=== PATIENT | female | born 1945 | race Hispanic/Latino ===

== ENCOUNTER 2024-10-22 13:50 | Emergency (ER) | payer MEDICARE, SELFPAY ==
--- NOTE | ~2024-10-22 | CT_ITS ---
EXAMINATION: CT brain wo con DATE: 10/22/2024 14:39 INDICATION: Head injury TECHNIQUE: Computed tomography (CT) of the head was performed without intravenous contrast. Sagittal and coronal reconstructions were performed. Automated exposure control and iterative reconstruction t echnique were employed. The dose-length product was 529.67 mGy-cm. COMPARISON: None FINDINGS: No fracture. No acute intracranial hemorrhage, acute infarction or abnormal extra axial fluid collect ion. Small old lacunar infarct at the right basal ganglia. There is mild scattered white matter hypoa ttenuation consistent with chronic small vessel ischemic disease. Symmetric prominence of the sulci a nd subarachnoid spaces overlying the convexities consistent with mild age-appropriate diffuse cerebra l volume loss. Ventricles are normal and symmetric. No mass/mass effect. Changes of bilateral intraoc ular lens replacement. The orbits and mastoid air cells are normal. Mild mucosal thickening in the bi lateral ethmoid sinuses. IMPRESSION: 1. No fracture or acute intracranial process. 2. Age related changes in the brain and small old lacunar infarct at the right basal ganglia. Reviewed, dictated and finalized at location A.
--- NOTE | ~2024-10-22 | XR_ITS ---
EXAM/ PROCEDURE: XR hip RT 2V w AP pelvis - 10/22/2024 14:45 CDT HISTORY: 79 years old Female with fall, pain COMPARISON: None available TECHNIQUE: Three view(s) FINDINGS/ IMPRESSION: There are no fractures or dislocations.Joint space narrowing, subchondral sclerosis, subchondral cyst formation and osteophyte formation, compatible with mild osteoarthritis. Reviewed, dictated and finalized at location A.
[2024-10-22 13:37] VITALS: BP 162/79; PULSE 77; RESP 15; O2SAT 99
--- OUTSIDE RECORDS SUMMARY | 2024-10-22 14:19 | XMS_ITS | Clinical Summary ---
Author Organization [facility] Address 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 Active loratadine (CLARITIN) 10 mg tablet Take 10 mg by mouth daily. Active omeprazole (PriLOSEC) 20 mg Capsule, Delayed Release(E.C.)Ind ications:Esophag eal reflux Take 1 Cap by mouth daily. 04/14/2014 Active atorvastatin (LIPITOR) 40 mg tablet Take 1 Tablet (40 mg) by mouth daily with supper. 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 Encounter for pessary maintenance 03/07/2015 Osteoporosis 04/14/2014 Hyperlipidemia LDL goal <70 04/14/2014 Esophageal reflux 04/14/2014 Dermatochalasis of eyelid 08/31/2013 Resolved Problems Problem Noted Date Diagnosed Date Resolved Date Uterine prolapse 10/29/2017 12/29/2018 Chronic diastolic CHF (conge stive heart failure) 07/16/2017 08/22/2017 Cerebrovascular accident (CV A) due to thrombosis of left posterior cerebral artery 07/15/2017 08/22/2017 Overview (07/26/2020): Had weakness with standing, pain over right face and jaw and blurred vision in right eye -- lasted about ten minutes S/P Blepharitis of both eyes 10/21/2013 04/14/2014 Ptosis of both eyelids 08/31/201310/21 UTI (urinary tract infection) 10/23/2012 04/14/2014 Uterovaginal prolapse, incomplete 05/15/2011 05/03/2016 Cystocele, lateral 05/15/2011 7 Encounters Date Type Department Care Team Description 10/13/2024 External Device Data [facility] ABSTRACTION Provider, Abstract 10/13/2024 External Device Data [facility] ABSTRACTION Provider, Abstract 10/13/2024 External Device Data [facility] ABSTRACTION Provider, Abstract 10/12/2024 External Device Data [facility]STRACTION Provider, Abstract 09/15/2024 External Device Data [facility]STRACTION Provider, Abstract 09/14/2024 External Device Data [facility] ABSTRACTION Provider, Abstract 08/19/2024 External Device Data [facility] ABSTRACTION Provider, Abstract 08/17/2024 External Device Data [facility] ABSTRACTION Provider, Abstract from Last 3 Months Immunizations Immunization Administration Dates Next Due (CAPVAXIVE)(18 YRS AND UP) PNEUMOCOCCAL CONJUGATE PCV21, POLYSACCHARIDE CRM [id number] CONJUGATE, 0.5 ML (PF) IM ADJUVANT 0.5 ML (PF) IM 04/30/2024 (PREVNAR 13)(6 WKS UP) PNEUM OCOCCAL CONJUGATE (PCV13) 0.5 ML, IM 07/17/2015 (SHINGRIX)(50 YRS UP) ZOSTER VACCINE RECOMBINANT, 0.5 ML, IM 04/30/2024 (SPIKEVAX) (12 YRS UP PRIMAR Y SERIES) COVID-19 VACCINE - [id number](PF) 100 MCG/0.5 ML IM SUSP 12/23/2022 INFLUENZA VACCINE HIGH DOSE QUADRIVALENT 65 YR UP PF IM 12/23/2022,02/11/2022,01/09/2021,01/05 Influenza Seasonal Unspecifi ed Formulation IM 12/23/2022,02/04/2019,01/06/2018,04/29,11/29/2013,01/08/2013 Influenza Vaccine High Dose 65+ Yrs IM 5 PNEUMOVAX (PPSV23) pneumococ ek polysaccharide 23-valent Vaccine 03/31/2011 Family History Medical History Relation Name Comments Blindness Brother 1 Leukemia Brother 1 Healthy Daughter Cancer Father pancreatic posi tive to counselor- see media tab Pancreatic Cancer Father Cataract Mother Leukemia Mother Congenital Heart Defect Sister 1 Healthy Son Breast Cancer Neg Hx Cancer - Other Neg Hx Colon Cancer Neg Hx Detachment/Tears Neg Hx Diabetes Neg Hx Macular Degen Neg Hx Melanoma Neg Hx Ovarian Cancer Neg Hx Uterine or Endometrial Cance r, Not Including Cervical Neg Hx Relation Name Status Comments Brother 1 Alive Brother 2 Alive Brother 3 Alive Daughter Alive Father Mother Sister 1 Sister 2 Alive Son Alive Social History Tobacco Use Types Packs/Day Years Used Date Smoking Tobacco: Never Smokeless Tobacco: Never Tobacco Cessation:Counseling Given: Not Answered Alcohol Use Standard Drinks/Week Comments Yes 0 (1 standard drink = 0.6 oz pur e alcohol) Comments No Sex and Gender Information Value Date Recorded Sex Assigned at Not on file 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 Gender Identity Not on file Sexual Orientation Not on file Last Filed Vital Signs Vital Sign Reading Time Taken Comments Blood Pressure 122/80 02/03/2024 2:05 PM BARBECUE COOK Pulse 94 02/03/2024 2:05 PM BARBECUE COOK Temperature 36.7 C (98 F) 04/09/2023 2:00 PM BARBECUE COOK Respiratory Rate 18 04/09/2023 2:00 PM BARBECUE COOK Oxygen Saturation 97% 02/03/2024 2:05 PM BARBECUE COOK Inhaled Oxygen Concentration - - Weight 59 kg (130 lb) 02/03/2024 2:05 PM BARBECUE COOK Height 158.8 cm (5' 2.5) 02/03/2024 2:05 PM BARBECUE COOK Body Mass Index 23.4 02/03/2024 2:05 PM BARBECUE COOK Plan of Treatment Health Maintenance Due Date Last Done Comments DTAP/TDAP/TD VACCINES (1 - Tdap) 1964 COLORECTAL SCREENING 08/27/2018 08/27/2013, 08/27/2013, 12/27/2002 RSV VACCINE (60+ or ) (1 - 1-dose 75+ series) 2021 OSTEOPOROSIS SCREENING 12/22/2022 8, 12/22/2017, 05/05/2014, Additional history exists COVID-19 Vaccine ( - 2023-2 5 season) 2023 12/23/2022, 01/26/2021, 05/26/2020, Additional history exists ZOSTER VACCINE (2 of 2) 06/25/2024 04/30/2024 INFLUENZA VACCINE (#1) 2024 3, 12/23/2022, 02/11/2022, Additional history exists PNEUMOCOCCAL VACCINE 50+ YEARS Completed 0 04/30/2024, 07/17/2015, 03/31/2011 Medical Devices Implanted Type Area Texturing Machine Fixer Device Identifier Shelf Expiration Date Model / Serial / Lot Lens Io Tecnis 1pc 17.0 [id number] - [id number] Implanted:Qty: 1 on 07/06/2015 by Beau Morin MD Eye Right: Eye [employer] 01/29/2019 [id number] / [id number] / Lens Io Tecnis 1pc 16.0 [id number] - [id number] Implanted:Qty: 1 on 08/03/2015 by Beau Morin MD Eye Left: Eye [employer] 04/18/2019 [id number] / [id number] / Procedures Procedure Name Priority Date/Time Associated Diagnosis Comments XR DEXA BONE DENSITY AXIAL 1 OR MORE SITES Routine 12/22/2017 1:40 PM CDT Menopause from Last 3 Months or Most Recently Relevant to Health Maintenance Results * XR DEXA BONE DENSITY AXIAL 1 OR MORE SITES (12/22/2017 1:40 PM CDT) Anatomical Region Laterality Modality Other Impressions 12/22/2017 8:20 PM CDT Stable abnormal examination demonstrating osteoporotic values in the lumbar spine without important change by comparison lying below the average of the patient's age-matched control consistent with accelerated bone demineralization. NOF guidelines recommend consideration of FDA-approved medical therapies in patients with T-scores Consider remeasuring no sooner than two years only as clinically needed. Of the spine or hip equal to or less than -2.5. Narrative 12/22/2017 8:20 PM CDT DEXA Evaluation of the Lumbar Spine and Left Proximal Femur Reason for Consultation: Osteoporosis. Evaluation of bone mineral density. The following absorptiometry data were obtained. The quality of this examination is acceptable with regards to count density, processed images, data display and lack of important artifacts (including but not limited to motion and attenuation artifacts). Serial examination number two with comparison to a prior exam of 05/05/2014. L2-L3 BMD (g/cm2): 0.894 Adult T-score: -2.5 Adult Z-score: -0.9 Left Femoral Neck BMD (g/cm2): 0.727 Adult T-score: -2.2 Adult Z-score: -0.5 Left Total Hip BMD (g/cm2): 0.848 Adult T-score: -1.3 Adult Z-score: 0.2 Procedure Note Michael Granger MD - 08/17/2020 DEXA Evaluation of the Lumbar Spine and Left Proximal Femur Reason for Consultation: Osteoporosis. Evaluation of bone mineral density. The following absorptiometry data were obtained. The quality of this examination is acceptable with regards to count density, processed images, data display and lack of important artifacts (including but not limited to motion and attenuation artifacts). Serial examination number two with comparison to a prior exam of 05/05/2014. L2-L3 BMD (g/cm2): 0.894 Adult T-score: -2.5 Adult Z-score: -0.9 Left Femoral Neck BMD (g/cm2): 0.727 Adult T-score: -2.2 Adult Z-score: -0.5 Left Total Hip BMD (g/cm2): 0.848 Adult T-score: -1.3 Adult Z-score: 0.2 IMPRESSION Stable abnormal examination demonstrating osteoporotic values in the lumbar spine without important change by comparison lying below the average of the patient's age-matched control consistent with accelerated bone demineralization. NOF guidelines recommend consideration of FDA-approved medical therapies in patients with T-scores Consider remeasuring no sooner than two years only as clinically needed. Of the spine or hip equal to or less than -2.5. 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
--- NOTE | 2024-10-22 14:43 | ED.LOWEXIN ---
HPI - Extremity Injury (Lower) General Chief Complaint: Extremity Injury, Lower <Jackie Gant MD - Last Filed: 10/22/24 15:10> Stated Complaint: glf, RLE shortened <Jackie Gant MD - Last Filed: 10/22/24 15:10> Time Seen by Provider: 10/22/24 14:02 <Jackie Gant MD - Last Filed: 10/22/24 15:10> Source: patient, EMS and RN notes reviewed <Jackie Gant MD - Last Filed: 10/22/24 15:10> Mode of arrival: EMS <Jackie Gant MD - Last Filed: 10/22/24 15:10> Limitations: no limitations <Jackie Gant MD - Last Filed: 10/22/24 15:10> History of Present Illness HPI Narrative: This is 79 year old female who presents for evaluation of right hip pain s/p fall. Patient states she was rushing trying to go to bathroom and she ran into the cabinet. Shefell onto her right hip, and she also hit the back of her head. She denies LOC. Her was able to help her up. She is having pain with walking. <Jackie Gant MD - Last Filed: 10/22/24 15:10> MD complaint: hip injury <Jackie Gant MD - Last Filed: 10/22/24 15:10> Place: home <Jackie Gant MD - Last Filed: 10/22/24 15:10> Related Data Allergies/Adverse Reactions: Allergies Allergy/AdvReac Type Severity Reaction Status Date / Time No Known Allergies Allergy Verified 10/22/24 14:28 <Jackie Gant MD - Last Filed: 10/22/24 15:10> Exam Const: General: no acute distress and alert <Jackie Gant MD - Last Filed: 10/22/24 15:10> Nutritional Appearance: well nourished <Jackie Gant MD - Last Filed: 10/22/24 15:10> Orientation/consciousness: patient oriented x3 <Jackie Gant MD - Last Filed: 10/22/24 15:10> HENMT: Head: normal to inspection <Jackie Gant MD - Last Filed: 10/22/24 15:10> Eyes: EOM: EOMs intact bilaterally <Jackie Gant MD - Last Filed: 10/22/24 15:10> Resp: Effort & Inspection: normal respiratory effort <Jackie Gant MD - Last Filed: 10/22/24 15:10> Auscultation: clear to auscultation bilaterally <Jackie Gant MD - Last Filed: 10/22/24 15:10> Cardio: Rate: regular rate <Jackie Gant MD - Last Filed: 10/22/24 15:10> Rhythm: regular rhythm <Jackie Gant MD - Last Filed: 10/22/24 15:10> Heart sounds: no murmurs <Jackie Gant MD - Last Filed: 10/22/24 15:10> GI: GI Palp: Yes Soft to palpation, No Tenderness to palpation present (GI), No Guarding due to palpation present (GI) and No Rigid due to palpation <Jackie Gant MD - Last Filed: 10/22/24 15:10> Auscultation: normal bowel sounds <Jackie Gant MD - Last Filed: 10/22/24 15:10> Skin: General skin exam: normal color <Jackie Gant MD - Last Filed: 10/22/24 15:10> Rashes: no rashes <Jackie Gant MD - Last Filed: 10/22/24 15:10> Neuro: General: patient oriented x3 and CN's II-XI intact bilaterally <Jackie Gant MD - Last Filed: 10/22/24 15:10> Extrem: Other: unable to range right hip due to pain, pulses in tact <Jackie Gant MD - Last Filed: 10/22/24 15:10> Psych: Mental Status: mental status grossly normal <Jackie Gant MD - Last Filed: 10/22/24 15:10> Affect: normal affect <Jackie Gant MD - Last Filed: 10/22/24 15:10> Attitude: cooperative <Jackie Gant MD - Last Filed: 10/22/24 15:10> Course Reevaluation(s) Reevaluation #1: Care turned over to DR. Saul. Patient pending CT brain and right hip xray. <Jackie Gant MD - Last Filed: 10/22/24 15:10> Date: 10/22/24 <Jackie Gant MD - Last Filed: 10/22/24 15:10> Time: 15:09 <Jackie Gant MD - Last Filed: 10/22/24 15:10> Vital Signs Vital signs: Vital Signs Pulse Rate 77 10/22/24 13:37 Respiratory Rate 15 10/22/24 13:37 Blood Pressure 162/79 H 10/22/24 13:37 Pulse Oximetry 99 10/22/24 13:37 Oxygen Delivery Room Air 10/22/24 13:37 Pulse Rate 71 10/22/24 16:45 Respiratory Rate 14 10/22/24 16:45 Blood Pressure 136/76 10/22/24 16:45 Pulse Oximetry 95 10/22/24 16:45 Oxygen Delivery Room Air 10/22/24 13:37 <Jackie Gant MD - Last Filed: 10/22/24 15:10> Vital Signs Pulse Rate 77 10/22/24 13:37 Respiratory Rate 15 10/22/24 13:37 Blood Pressure 162/79 H 10/22/24 13:37 Pulse Oximetry 99 10/22/24 13:37 Oxygen Delivery Room Air 10/22/24 13:37 Pulse Rate 71 10/22/24 16:45 Respiratory Rate 14 10/22/24 16:45 Blood Pressure 136/76 10/22/24 16:45 Pulse Oximetry 95 10/22/24 16:45 Oxygen Delivery Room Air 10/22/24 13:37 <Kelly Saul MD - Last Filed: 10/22/24 17:10> MDM - Extremity Injury (Lower) MDM Narrative Medical decision making narrative: PATIENT WAS SIGNED OUT TO ME AT SHIFT CHANGE WAITING FOR BLOOD WORKUP, IMAGING AND LABS. BLOOD WORKUP SHOWED NO SIGNIFICANT ABNORMALITY CT HEAD WITHOUT CONTRAST SHOWED NO ACUTE ABNORMALITY X-RAY OF THE HIP AND PELVIS SHOWED NO ACUTE ABNORMALITIES. DIAGNOSIS: FALL, RIGHT HIP CONTUSION/SPRAIN. THE PT WAS DISCHARGED TO HOME.THE PT,S CONDITION UPON DISCHARGE WAS FAIR,EDUCATION WAS PROVIDED TO THE PT IN REFERENCE TO THE FINAL IMPRESSION,DISCHARGE STUDY RESULTS,TREATMENT,PROGNOSIS AND NEED FOR FOLLOW UP . <Kelly Saul MD - Last Filed: 10/22/24 17:10> Lab Data Result diagrams: 10/22/24 15:05 10/22/24 15:05 <Jackie Gant MD - Last Filed: 10/22/24 15:10> Labs: Lab Results 10/22/24 Range/Units 15:05 WBC 14.1 H (4.5-10.0) K/mm3 RBC 4.46 (4.2-5.4) M/mm3 Hgb 13.1 (12.0-15.0) g/dL Hct 40.6 (37.0-47.0) % MCV 91.0 (80-100) fl MCH 29.4 (26-34) pg MCHC 32.3 (32-36) g/dl RDW 13.0 (11.5-14.5) % Plt Count 240 (150-375) k/mm3 MPV 9.0 (7.4-10.4) fl Immature Gran % (Auto) 0.5 (0-0.5) % Neut % (Auto) 84.2 H (45.5-73.1) % Lymph % (Auto) 7.9 L (18.3-44.2) % [place] % (Auto) 6.7 (2.6-8.5) % Eos % (Auto) 0.4 (0-4.4) % Baso % (Auto) 0.3 (0.2-1.2) % Lymph # (Auto) 1.11 (0.9-3.2) K/mm3 [place] # (Auto) 1.0 H (0.1-0.6) K/mm3 Eos # (Auto) 0.1 (0-0.3) K/mm3 Baso # (Auto) 0.0 (0.0-0.1) K/mm3 Abs Immat Gran (auto) 0.07 H (0.00-0.031) K/mm3 Absolute Neuts (auto) 11.9 H (1.3-6.7) K/mm3 Absolute Nucleated RBC 0.000 (0.0-0.012) K/mm3 Nucleated RBC % 0.0 (0.0-0.2) % PT 13.5 (11.1-14.7) Seconds INR 1.0 APTT 25.2 (22.3-36.8) Seconds Sodium 135 L (137-145) mmol/L Potassium 3.6 (3.4-5.0) mmol/L Chloride 106 (98-107) mmol/L Carbon Dioxide 22 (22-30) mmol/L Anion Gap 7 (4-12) mmol/L BUN 11 (7-17) mg/dL Creatinine 0.65 L (0.7-1.0) mg/dL Estim Creat Clear Calc 48 ml/min Estimated GFR > 60 (59 - ) Glucose 101 (65-110) mg/dL Calcium 9.2 (8.4-10.2) mg/dL Total Bilirubin 0.5 (0.2-1.3) mg/dL AST 24 (14-36) U/L ALT 14 (6-35) U/L Alkaline Phosphatase 65 (38-126) U/L Total Protein 6.7 (6.3-8.2) g/dL Albumin 4.0 (3.5-5.1) g/dL <Jackie Gant MD - Last Filed: 10/22/24 15:10> Lab Results 10/22/24 Range/Units 15:05 WBC 14.1 H (4.5-10.0) K/mm3 RBC 4.46 (4.2-5.4) M/mm3 Hgb 13.1 (12.0-15.0) g/dL Hct 40.6 (37.0-47.0) % MCV 91.0 (80-100) fl MCH 29.4 (26-34) pg MCHC 32.3 (32-36) g/dl RDW 13.0 (11.5-14.5) % Plt Count 240 (150-375) k/mm3 MPV 9.0 (7.4-10.4) fl Immature Gran % (Auto) 0.5 (0-0.5) % Neut % (Auto) 84.2 H (45.5-73.1) % Lymph % (Auto) 7.9 L (18.3-44.2) % [place] % (Auto) 6.7 (2.6-8.5) % Eos % (Auto) 0.4 (0-4.4) % Baso % (Auto) 0.3 (0.2-1.2) % Lymph # (Auto) 1.11 (0.9-3.2) K/mm3 [place] # (Auto) 1.0 H (0.1-0.6) K/mm3 Eos # (Auto) 0.1 (0-0.3) K/mm3 Baso # (Auto) 0.0 (0.0-0.1) K/mm3 Abs Immat Gran (auto) 0.07 H (0.00-0.031) K/mm3 Absolute Neuts (auto) 11.9 H (1.3-6.7) K/mm3 Absolute Nucleated RBC 0.000 (0.0-0.012) K/mm3 Nucleated RBC % 0.0 (0.0-0.2) % PT 13.5 (11.1-14.7) Seconds INR 1.0 APTT 25.2 (22.3-36.8) Seconds Sodium 135 L (137-145) mmol/L Potassium 3.6 (3.4-5.0) mmol/L Chloride 106 (98-107) mmol/L Carbon Dioxide 22 (22-30) mmol/L Anion Gap 7 (4-12) mmol/L BUN 11 (7-17) mg/dL Creatinine 0.65 L (0.7-1.0) mg/dL Estim Creat Clear Calc 48 ml/min Estimated GFR > 60 (59 - ) Glucose 101 (65-110) mg/dL Calcium 9.2 (8.4-10.2) mg/dL Total Bilirubin 0.5 (0.2-1.3) mg/dL AST 24 (14-36) U/L ALT 14 (6-35) U/L Alkaline Phosphatase 65 (38-126) U/L Total Protein 6.7 (6.3-8.2) g/dL Albumin 4.0 (3.5-5.1) g/dL <Kelly Saul MD - Last Filed: 10/22/24 17:10> Imaging Data Radiologist's impression: Impressions Head CT 10/22/24 15:02 IMPRESSION: 1. No fracture or acute intracranial process. 2. Age related changes in the brain and small old lacunar infarct at the right basal ganglia. <Kelly Saul MD - Last Filed: 10/22/24 17:10> Critical Care Time Critical Care Time Critical Care Time: No <Kelly Saul MD - Last Filed: 10/22/24 17:10> Discharge Plan Discharge Clinical Impression: Fracture of femoral neck, right, closed Qualifiers: Encounter type: initial encounter Qualified Code(s): S72.001A - Fracture of unspecified part of neck of right femur, initial encounter for closed fracture <Jackie Gant MD - Last Filed: 10/22/24 15:10> Patient Disposition: Still a Patient <Jackie Gant MD - Last Filed: 10/22/24 15:10> Condition: Stable <Jackie Gant MD - Last Filed: 10/22/24 15:10> Additional Instructions: RETURN IF SYMPTOMS ARE WORSENING , CALL YOUR FAMILY PHYSICIAN FOR APPOINTMENT, TAKE TYLENOL, IBUPROFEN NEEDED FOR ACHES AND PAIN, CONTINUE HOME MEDICATIONS. <Jackie Gant MD - Last Filed: 10/22/24 15:10> Patient Language: French <Jackie Gant MD - Last Filed: 10/22/24 15:10> Follow-up/Referrals: Koffi Ken, [Primary Care Provider] - <Jackie Gant MD - Last Filed: 10/22/24 15:10>
[2024-10-22] MEDS: MORPHINE SULFATE (*CRX) 4 MG/ML INJ IV PUSH (14:56)
[2024-10-22] MEDS: ONDANSETRON INJ 4 MG/2 ML VIAL IV PUSH (14:57)
[2024-10-22 15:12] LABS: Hematocrit 40.6 % (37.0-47.0); Hemoglobin 13.1 g/dL (12.0-15.0); Immature Granulocyte Percent A 0.5 % (0-0.5); Lymphocytes Absolute Auto 1.11 K/mm3 (0.9-3.2); Mean Corpuscular HGB Conc 32.3 g/dl (32-36); Mean Corpuscular Hemoglobin 29.4 pg (26-34); Mean Corpuscular Volume 91.0 fl (80-100); Nucleated Red Blood Cells Absolute Auto 0.000 K/mm3 (0.0-0.012); Nucleated Red Blood Cells Perc 0.0 % (0.0-0.2); Platelet Count Result 240 k/mm3 (150-375); Red Blood Count 4.46 M/mm3 (4.2-5.4); White Blood Count 14.1 K/mm3 (4.5-10.0)
[2024-10-22 15:30] LABS: Alanine Aminotransferase 14 U/L (6-35); Albumin Level 4.0 g/dL (3.5-5.1); Alkaline Phosphatase 65 U/L (38-126); Anion Gap 7 mmol/L (4-12); Aspartate Amino Transferase 24 U/L (14-36); Bilirubin,Total 0.5 mg/dL (0.2-1.3); Blood Urea Nitrogen 11 mg/dL (7-17); Calcium 9.2 mg/dL (8.4-10.2); Carbon Dioxide 22 mmol/L (22-30); Chloride 106 mmol/L (98-107); Estimated CRCL calculation 48 ml/min; Estimated Glomerular Filt Rate > 60; Glucose 101 mg/dL (65-110); INR 1.0; Potassium 3.6 mmol/L (3.4-5.0); Prothrombin Time 13.5 Seconds (11.1-14.7); Sodium 135 mmol/L (137-145); Total Protein 6.7 g/dL (6.3-8.2)
[2024-10-22 15:31] LABS: Partial Thromboplastin Time 25.2 Seconds (22.3-36.8)
[2024-10-22 16:00] VITALS: BP 123/65; PULSE 69; RESP 17; O2SAT 96
[2024-10-22 16:45] VITALS: BP 136/76; PULSE 71; RESP 14; O2SAT 95
[2024-10-22 17:30] VITALS: BP 136/76; PULSE 81; RESP 18; TEMP 36.3; O2SAT 97
== END 2024-10-22 17:47 | disposition home or self-care (01) ==
PROVIDERS: General Practice; Emergency Provider Emergency Medicine; PCP Internal Medicine
DX: S72.001A Fracture of unspecified part of neck of right femur, initial encounter for closed fracture (principal); W18.09XA Striking against other object with subsequent fall, initial encounter
CPT/HCPCS: 36415; 70450; 73502; 80053; 85025; 85610; 85730; 96374; 96375; 99284; J2270; J2405

== ENCOUNTER 2024-10-27 15:41 | Outpatient (CLI) | payer MEDICARE, SELFPAY ==
--- NOTE | ~2024-10-27 | CT_ITS ---
CT OF right hip EXAMINATION: CT hip RT wo con DATE: 10/27/2024 16:06 INDICATION: Right hip pain TECHNIQUE: Computed tomography (CT) of the right hip was performed without intravenous contrast. Auto mated exposure control and iterative reconstruction technique were employed. The dose-length product was 93.52 mGy-cm. COMPARISON: X-ray pelvis and right hip 10/22/2024 FINDINGS: Atherosclerotic abdominal arterial calcifications. Mild urinary bladder wall thickening as can be see n with incomplete distention. Mild degenerative change in the pubic symphysis and right hip. Nondispl aced fracture at the distal right femoral neck. The fracture is predominantly transcervical, with ext ension of fracture lines into the lesser trochanter. No other fracture detected. IMPRESSION: Nondisplaced, predominantly transcervical right femoral neck fracture, with lesser trochanter involve ment. Results reported telephonically to Geno Story NP by Dr. Richardson at 4:19 PM on 10/27/2024. Reviewed, dictated and finalized at location K. IMPRESSION: Nondisplaced, predominantly transcervical right femoral neck fracture, with les ser trochanter involvement. Results reported telephonically to Geno Story NP by Dr. Richardson at 4:19 PM on 10/27/2024.
--- OUTSIDE RECORDS SUMMARY | 2024-10-27 15:39 | XMS_ITS | Clinical Summary ---
Author Organization [facility] Address 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 Gender Identity Not on file Sexual Orientation Not on file Last Filed Vital Signs Vital Sign Reading Time Taken Comments Blood Pressure 122/80 02/03/2024 2:05 PM REGIONAL SALES ENGINEER Pulse 94 02/03/2024 2:05 PM REGIONAL SALES ENGINEER Temperature 36.7 C (98 F) 04/09/2023 2:00 PM REGIONAL SALES ENGINEER Respiratory Rate 18 04/09/2023 2:00 PM REGIONAL SALES ENGINEER Oxygen Saturation 97% 02/03/2024 2:05 PM REGIONAL SALES ENGINEER Inhaled Oxygen Concentration - - Weight 59 kg (130 lb) 02/03/2024 2:05 PM REGIONAL SALES ENGINEER Height 158.8 cm (5' 2.5) 02/03/2024 2:05 PM REGIONAL SALES ENGINEER Body Mass Index 23.4 02/03/2024 2:05 PM REGIONAL SALES ENGINEER Plan of Treatment Health Maintenance Due Date [...] 07/17/2015, 03/31/2011 Medical Devices Implanted Type Area Certified Medication Aide Device Identifier Shelf Expiration Date Model / Serial / Lot Lens Io Tecnis 1pc 17.0 [id number] - [id number] Implanted:Qty: 1 on 07/06/2015 by Beau Morin MD Eye Right: Eye [employer] 01/29/2019 [id number] / [id number] / Lens Io Tecnis 1pc 16.0 [id number] - [id number] Implanted:Qty: 1 on 08/03/2015 by Beau Morin MD Eye Left: Eye [employer] 04/18/2019 [id number] / [id number] / Procedures Procedure Name Priority Date/Time Associated [...] hip equal to or less than -2.5. 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
[2024-10-27 17:34] LABS: Hematocrit 39.8 % (37.0-47.0); Hemoglobin 13.0 g/dL (12.0-15.0); Immature Granulocyte Percent A 0.4 % (0-0.5); Lymphocytes Absolute Auto 1.88 K/mm3 (0.9-3.2); Mean Corpuscular HGB Conc 32.7 g/dl (32-36); Mean Corpuscular Hemoglobin 29.7 pg (26-34); Mean Corpuscular Volume 91.1 fl (80-100); Nucleated Red Blood Cells Absolute Auto 0.000 K/mm3 (0.0-0.012); Nucleated Red Blood Cells Perc 0.0 % (0.0-0.2); Platelet Count Result 204 k/mm3 (150-375); Red Blood Count 4.37 M/mm3 (4.2-5.4); White Blood Count 8.5 K/mm3 (4.5-10.0)
== END 2024-10-27 15:42 | disposition home or self-care (01) ==
PROVIDERS: PCP Nurse Practitioner; Visit Provider Nurse Practitioner
DX: D72.829 Elevated white blood cell count, unspecified (principal); S72.034D Nondisplaced midcervical fracture of right femur, subsequent encounter for closed fracture with routine healing; X58.XXXD Exposure to other specified factors, subsequent encounter
CPT/HCPCS: 36415; 73700; 85025

== ENCOUNTER 2024-10-28 16:56 | Inpatient (IN) | payer MEDICARE, SELFPAY ==
--- NOTE | ~2024-10-28 | XR_ITS ---
CHEST RADIOGRAPH CLINICAL HISTORY: Preop . COMPARISON: None available TECHNIQUE: Single portable view of the chest. FINDINGS The cardiomediastinal silhouette is unremarkable. The lungs are clear. IMPRESSION: No focal infiltrate or effusion. Reviewed, dictated and finalized at location A.
--- NOTE | ~2024-10-28 | XR_ITS ---
EXAMINATION: XR surgery orthopedic DATE: 10/29/2024 20:20 CDT INDICATION: RT IT NAIL . TECHNIQUE: 2 fluoroscopic images of the right hip were obtained during right intertrochanteric nail p lacement. Fluoroscopy exposure time was 1 minute 32.9 seconds. Air Kerma 23.54 mGy. DAP 4.67 mGym2. COMPARISON: CT right hip 10/27/2024. FINDINGS/IMPRESSION: Fluoroscopic documentation of right intertrochanteric nail placement. Please refer to the operative n ote for complete procedural details. Reviewed, dictated and finalized at location K.
--- NOTE | 2024-10-28 15:16 | ADMGEN ---
This patient, Jane Thompson, was admitted to 3 [facility] Surg Room 304-01. Patient/family oriented to hospital policies and general routines including ID bracelet, bed and alarms, visiting hours, pain management, procedures, bathroom and other care routines, personal items, smoking policy, room service/diet, and visiting hours. Information on how to activate the Rapid Response Team has been discussed. Patient/Family are encouraged to report perceived risks to care and to ask questions if they do not understand what they are told or what they should do.
[2024-10-28 15:17] VITALS: BMI 22.3
[2024-10-28 16:40] VITALS: BP 145/69; PULSE 79; RESP 18; TEMP 36.9; O2SAT 98
--- NOTE | 2024-10-28 16:43 | P.HP_ITS ---
H&P: HPI History of Present Illness Date/Time: 10/28/24 16:43 Chief Complaint: Right hip pain Narrative: 79-year-old female as a direct admit from her orthopedic office for right hip pain. Patient states that she fall on 10/22/2024 and went to the emergency room for evaluation of right hip pain with x-ray negative for fracture. She was still having severe pain and unable to bear weight. Orthopedics had ordered a hip CT which showed nondisplaced, predominantly transcervical right femoral neck fracture, with lesser trochanter involvement. Patient is a direct admit from the orthopedic office. With plans for OR tomorrow for IT fracture. Labs pending. Chest x-ray with no acute process. Review of Systems Review of Systems: 12 systems were reviewed and are negativ e except for as per HPI. [facility] Social History Social History Smoking status: Never smoker Alcohol intake: current Drinks per week: 3 Substance use: current Substance use type: does not use Lack of Transportation: No Lack of Food: Never True Current Housing: I Have Housing Concerned About Future Housing: No Difficulty Paying Gas/Electric Bills: No Difficulty Paying for Meds: No Currently Unemployed: No Education: High School Diploma/GED Difficulty w/ Childcare or Family Care: No Spiritual care concerns: No Meds Home Medications and Allergies Home Medications ?Medication ?Instructions ?Recorded ?Confirmed ?Type atorvastatin 40 mg tablet (Lipitor) 40 mg PO QPM 10/27/24 10/28/24 History acetaminophen 500 mg capsule 1,000 mg PO Q6H PRN pain 10/28/24 10/28/24 History aspirin 81 mg tablet 81 mg PO QPM 10/28/24 10/28/24 History Allergies Allergy/AdvReac Type Severity Reaction Status Date / Time No Known Allergies Allergy Verified 10/27/24 13:48 Vital Signs Vital Signs - 24 hr 10/28/24 14:50 10/28/24 16:40 Temperature 98.5 F Pulse Rate 79 Respiratory Rate 18 Blood Pressure 145/69 H Pulse Oximetry 98 Oxygen Delivery Room Air Exam Narrative: General: well appearing, appears stated age. HEENT: normocephalic, atraumatic. Mucous membranes moist. EOMI, PERRLA, bilateral sclera anicteric, no conjunctival injection. Neck supple without JVD, lymphadenopathy, or bruit. Respiratory: clear to ascultation bilaterally. No rales/rhonic/wheezes. Cardiovascular: Regular rate and rhythm, normal S1-S2 upon ascultation. No murmurs, rubs, or clicks. PMI is nondisplaced, capillary refill less than 3 second. Abdomen: Soft, round, no pulsatile masses, nondistended and nontender. No rebound, no guarding. No CVA tenderness, no hepatosplenomegaly. Bowel sounds present to all four quadrants. No high pitch or tinkling sounds, resonant to percussion. Extremities: No cyanosis, clubbing, or edema present. Pulses are palpable 2/2. Right lower extremity range of motion reduced due to acute pain, extremities equal in length Neuro: Alert and orientated x 4. PERRLA. Cranial nerves 2-12 intact without focal deficit. Skin: Warm, dry, and intact, without rash, erythema, or lesion. Psych: pleasant, cooperative, normal speech, normal affect, no hallucinations, no dysarthia Assessment and Plan Assessment and plan (1) Nondisplaced fracture of neck of right femur: Code(s): S72.001A - Fracture of unspecified part of neck of right femur, initial encounter for closed fracture Status: Acute Assessment and Plan: Orthopedics consulted Plan for OR tomorrow NPO midnight Pain management Bowel protocol Chest x-ray and EKG pending (2) Fall: Qualifiers: Encounter type: subsequent encounter Qualified Code(s): W19.XXXD - Unspecified fall, subsequent encounter Code(s): W19.XXXA - Unspecified fall, initial encounter Status: Acute Assessment and Plan: Head CT from [id number] for acute process Patient will see PT OT after surgery (3) Hyperlipidemia: Qualifiers: Hyperlipidemia type: unspecified Qualified Code(s): E78.5 - Hyperlipidemia, unspecified Code(s): E78.5 - Hyperlipidemia, unspecified Status: Acute Assessment and Plan: Restart home statin Quality VTE Prophylaxis VTE prophylaxis: mechanical ordered Hospitalist MIPS Advance Care Plan I have confirmed that the patient's Advanced Care Plan is present, code status is documented, or surrogate decision maker is listed in patient medical record.: Yes Medication Reconciliation I have utilized all available resources to obtain, update and review the patients current medications (includes all prescriptions, OTC, herbals, cannabis, and nutritional supplements).: Yes
--- NOTE | 2024-10-28 17:25 | ECG_ITS ---
Test Date: 2024-10-29 09:08:23 Measurements Intervals [place] Rate: 72 P: 48 MA: 136 QRS: 13 QRSD: 85 T: 9 QT: 408 QTc: 447 Interpretive Statements SINUS RHYTHM CONSIDER RIGHT VENTRICULAR CONDUCTION DELAY BORDERLINE ST-T WAVE ABNORMALITY- ANT/INF LEADS BASELINE ARTIFACT- I, II, V1, V4-V6 BORDERLINE ECG No previous ECG available for comparison Electronically Signed On 10-29-2024 09:18:08 CDT by Tung Burgess D.O.
[2024-10-28] MEDS: ACETAMINOPHEN 325 MG TABLET 650 MG PO ×2 (17:26→23:01)
[2024-10-28] MEDS: LIDOCAINE 5% PATCH 1 PATCH TRANSDERM (17:26)
[2024-10-28] MEDS: DOCUSATE SODIUM 100 MG CAPSULE PO (17:27)
[2024-10-28] MEDS: ATORVASTATIN 40 MG TABLET PO (17:34)
--- NOTE | 2024-10-28 18:47 | PM.IMHP ---
H&P: HPI History of Present Illness Date/Time: 10/28/24 18:47 Chief Complaint: 79yo female S/P fall with non displaced intertrochanteric fracture of the RIGHT hip Review of Systems Musculoskeletal: Musculoskeletal: Reports arthralgias, Reports joint swelling and Reports stiffness Neurologic: Reports abnormal gait [facility] Social History Social History Smoking status: Never smoker Alcohol intake: current Drinks per week: 3 Substance use: current Substance use type: does not use Lack of Transportation: No Lack of Food: Never True Current Housing: I Have Housing Concerned About Future Housing: No Difficulty Paying Gas/Electric Bills: No Difficulty Paying for Meds: No Currently Unemployed: No Education: High School Diploma/GED Difficulty w/ Childcare or Family Care: No Spiritual care concerns: No Meds Home Medications and Allergies Home Medications ?Medication ?Instructions ?Recorded ?Confirmed ?Type atorvastatin 40 mg tablet (Lipitor) 40 mg PO QPM 10/27/24 10/28/24 History acetaminophen 500 mg capsule 1,000 mg PO Q6H PRN pain 10/28/24 10/28/24 History aspirin 81 mg tablet 81 mg PO QPM 10/28/24 10/28/24 History Allergies Allergy/AdvReac Type Severity Reaction Status Date / Time No Known Allergies Allergy Verified 10/27/24 13:48 Vital Signs Vital Signs - 24 hr 10/28/24 14:50 10/28/24 16:40 Temperature 98.5 F Pulse Rate 79 Respiratory Rate 18 Blood Pressure 145/69 H Pulse Oximetry 98 Oxygen Delivery Room Air Exam Narrative: Pain with motion. NVI unable to walk. Eyes: General: appearance normal, both eyes and all related structures Neck: Neck: supple Resp: Effort & Inspection: normal respiratory effort Cardio: Rate: regular rate Rhythm: regular rhythm Hip/Pelvis X-Ray 10/22/24 Assessment and Plan Assessment and plan (1) Intertrochanteric fracture of right hip: Code(s): S72.141A - Displaced intertrochanteric fracture of right femur, initial encounter for closed fracture Status: Acute Assessment and Plan: Patient has a nondisplaced intertrochanteric fracture of the Right hip. Recommend Open Reduction, Internal Fixation. Will proceed tomorrow.
[2024-10-28 22:00] VITALS: BP 152/63; PULSE 82; RESP 12; TEMP 37; O2SAT 97
[2024-10-29] VITALS (11 sets, daily range): BP systolic 138–160; BP diastolic 55–98; PULSE 68–105; RESP 14–24; TEMP 36.2–37.2; O2SAT 96–100
[2024-10-29] MEDS: ACETAMINOPHEN 325 MG TABLET 650 MG PO (05:09)
[2024-10-29 06:35] LABS: Hematocrit 36.7 % (37.0-47.0); Hemoglobin 12.0 g/dL (12.0-15.0); Immature Granulocyte Percent A 0.3 % (0-0.5); Lymphocytes Absolute Auto 2.05 K/mm3 (0.9-3.2); Mean Corpuscular HGB Conc 32.7 g/dl (32-36); Mean Corpuscular Hemoglobin 29.6 pg (26-34); Mean Corpuscular Volume 90.4 fl (80-100); Nucleated Red Blood Cells Absolute Auto 0.000 K/mm3 (0.0-0.012); Nucleated Red Blood Cells Perc 0.0 % (0.0-0.2); Platelet Count Result 185 k/mm3 (150-375); Red Blood Count 4.06 M/mm3 (4.2-5.4); White Blood Count 5.9 K/mm3 (4.5-10.0)
[2024-10-29 07:01] LABS: Anion Gap 4 mmol/L (4-12); Blood Urea Nitrogen 10 mg/dL (7-17); Calcium 8.8 mg/dL (8.4-10.2); Carbon Dioxide 26 mmol/L (22-30); Chloride 107 mmol/L (98-107); Estimated CRCL calculation 50 ml/min; Estimated Glomerular Filt Rate > 60; Glucose 99 mg/dL (65-110); Potassium 3.5 mmol/L (3.4-5.0); Sodium 137 mmol/L (137-145)
--- NOTE | 2024-10-29 09:55 | PM.IMPN ---
Progress Note: A&P Assessment and Plan (1) Nondisplaced fracture of neck of right femur: Code(s): S72.001A - Fracture of unspecified part of neck of right femur, initial encounter for closed fracture Status: Acute (2) Intertrochanteric fracture of right hip: Code(s): S72.141A - Displaced intertrochanteric fracture of right femur, initial encounter for closed fracture Status: Acute Plan fall Nondisplaced fracture of neck of right femur: Code(s): S72.001A - Fracture of unspecified part of neck of right femur, initial encounter for closed fracture Status: Acute Assessment and Plan: Orthopedics consulted Pain management Bowel protocol Chest x-ray and EKG pending Open Reduction, Internal Fixation today Hyperlipidemia: Qualifiers: Hyperlipidemia type: unspecified Qualified Code(s): E78.5 - Hyperlipidemia, unspecified Code(s): E78.5 - Hyperlipidemia, unspecified Status: Acute Assessment and Plan: Restart home statin Subjective Date/time seen: 10/29/24 09:55 Interval history: Patient is afebrile, hemodynamically stable, Labs reviewed, unremarkable Focal weakness, right hip pain is tolerable with narcotic medications Denies chest pain abdomen pain nausea vomiting diarrhea Exam Narrative: GENERAL: Pleasant, in no acute distress. Well-nourished. - EYES: EOMI. Anicteric. - HENT: Moist mucous membranes. - LUNGS: Clear to auscultation bilaterally, no wheezing, rhonchi, or rales. - CARDIOVASCULAR: Regular rate and rhythm. No murmur. No JVD. - ABDOMEN: Soft, non-tender and non-distended. No palpable masses. - EXTREMITIES: No edema. Peripheral pulses 2+. Non-tender. Right hip movement is restricted because of pain - NEUROLOGIC: No focal neurological deficits. CN II-XII grossly intact. - PSYCHIATRIC: Awake, Alert and oriented x 3. Appropriate mood and affect. - SKIN: No rashes or lesions. Warm. - LYMPH: No cervical lymphadenopathy. Objective Data Vital Signs Vital Signs: Vital Signs - 24 hr 10/28/24 14:50 10/28/24 16:40 10/28/24 20:00 Temperature 98.5 F Pulse Rate 79 Respiratory Rate 18 Blood Pressure 145/69 H Pulse Oximetry 98 Oxygen Delivery Room Air Room Air 10/28/24 22:00 10/29/24 06:00 Temperature 98.6 F 97.3 F L Pulse Rate 82 69 Respiratory Rate 12 20 Blood Pressure 152/63 H 145/88 H Pulse Oximetry 97 96 Oxygen Delivery Intake/Output Intake/Output: Intake & Output 10/26/24 10/27/24 10/28/24 10/29/24 23:59 23:59 23:59 23:59 Intake Total 790 350 Output Total 800 Balance 790 -450 Meds/Results Medications: Active Medications Generic Name Dose Route Start Last Admin Trade Name Freq PRN Reason Stop Dose Admin Acetaminophen 650 mg 10/28/24 16:50 10/29/24 05:09 Acetaminophen 325 Mg Tablet PO 650 mg Q6HR EDWIN Administration Aspirin 81 mg 10/28/24 18:00 10/28/24 20:12 Aspirin 81 Mg Chewable Tablet PO Not Given QPM EDWIN Atorvastatin Calcium 40 mg 10/28/24 18:00 10/28/24 17:34 Atorvastatin 40 Mg Tablet PO 40 mg QPM EDWIN Administration Docusate Sodium 100 mg 10/28/24 17:00 10/28/24 17:27 Docusate Sodium 100 Mg Capsule PO 100 mg BID EDWIN Administration Lidocaine 1 patch 10/28/24 16:50 10/28/24 17:26 Lidocaine 5% Patch TRANSDERM 1 patch DAILY EDWIN Administration Methocarbamol 500 mg 10/28/24 21:00 10/28/24 19:58 Methocarbamol 500 Mg Tablet PO 500 mg QID EDWIN Administration Morphine Sulfate 2 mg 10/28/24 16:19 Morphine Sulfate (*Crx) 2 Mg/Ml Inj IV PUSH Q2H PRN Pain Rated 7-10 Oxycodone HCl 5 mg 10/28/24 16:47 Oxycodone Hcl (*Crx) 5 Mg Tab Ir PO Q4H PRN Pain Rated 4-5 Radiology Results: ITS Impressions Chest X-Ray 10/28/24 17:49 IMPRESSION: No focal infiltrate or effusion. Labs Labs: Laboratory Results - last 24 hr 10/29/24 05:47 WBC 5.9 RBC 4.06 L Hgb 12.0 Hct 36.7 L MCV 90.4 MCH 29.6 MCHC 32.7 RDW 12.6 Plt Count 185 MPV 9.6 Immature Gran % (Auto) 0.3 Neut % (Auto) 49.7 Lymph % (Auto) 34.6 [place] % (Auto) 10.8 H Eos % (Auto) 3.9 Baso % (Auto) 0.7 Lymph # (Auto) 2.05 [place] # (Auto) 0.6 Eos # (Auto) 0.2 Baso # (Auto) 0.0 Abs Immat Gran (auto) 0.02 Absolute Neuts (auto) 3.0 Absolute Nucleated RBC 0.000 Nucleated RBC % 0.0 Sodium 137 Potassium 3.5 Chloride 107 Carbon Dioxide 26 Anion Gap 4 BUN 10 Creatinine 0.62 L Estim Creat Clear Calc 50 Estimated GFR > 60 Glucose 99 Calcium 8.8
[2024-10-29] MEDS: KETOROLAC 15 MG/ML VIAL (*BKC) IV PUSH (16:04)
[2024-10-29] MEDS: ACETAMINOPHEN 500 MG TABLET 1000 MG PO (16:04)
[2024-10-29] MEDS: TRANEXAMIC ACID 1,000MG/ISO100 1,000 MG/100 ML BAG 200 MG IVPB (16:05)
[2024-10-29] MEDS: LACTATED RINGERS 1,000 ML 30 ML IV CONT ×2 (16:07→21:28)
--- NOTE | 2024-10-29 19:41 | P.PNAN_ITS ---
Anes - Initial Pre Proc Eval Procedure: Operation Date: 10/29/24 16:30 Proposed Procedures p Right Intertrochanteric Nail - Simón Hameed MD Date/Time: 10/29/24 19:41 Surgeon: Valeria Pink MD Pre Op Diagnosis: Intertrochanteric Fracture Patient Data Age: 79 Gender: F Height: 1.57 m Weight: 55.3 kg Last Vital Signs Temp 37.2 C 10/29/24 15:55 Pulse 88 10/29/24 15:55 Resp 16 10/29/24 15:55 BP 160/77 H 10/29/24 15:55 Pulse Ox 100 10/29/24 15:55 O2 Del Method Room Air 10/29/24 15:55 Allergies Allergy/AdvReac Type Severity Reaction Status Date / Time No Known Allergies Allergy Verified 10/29/24 15:53 Home Medications ?Medication ?Instructions ?Recorded ?Confirmed ?Type atorvastatin 40 mg tablet (Lipitor) 40 mg PO QPM 10/27/24 10/28/24 History acetaminophen 500 mg capsule 1,000 mg PO Q6H PRN pain 10/28/24 10/28/24 History aspirin 81 mg tablet 81 mg PO QPM 10/28/24 10/28/24 History Laboratory Tests 10/29/24 10/29/24 05:47 13:29 WBC 5.9 K/mm3 (4.5-10.0) RBC 4.06 L M/mm3 (4.2-5.4) Hgb 12.0 g/dL (12.0-15.0) Hct 36.7 L % (37.0-47.0) MCV 90.4 fl (80-100) MCH 29.6 pg (26-34) MCHC 32.7 g/dl (32-36) RDW 12.6 % (11.5-14.5) Plt Count 185 k/mm3 (150-375) MPV 9.6 fl (7.4-10.4) Immature Gran % (Auto) 0.3 % (0-0.5) Neut % (Auto) 49.7 % (45.5-73.1) Lymph % (Auto) 34.6 % (18.3-44.2) [place] % (Auto) 10.8 H % (2.6-8.5) Eos % (Auto) 3.9 % (0-4.4) Baso % (Auto) 0.7 % (0.2-1.2) Lymph # (Auto) 2.05 K/mm3 (0.9-3.2) [place] # (Auto) 0.6 K/mm3 (0.1-0.6) Eos # (Auto) 0.2 K/mm3 (0-0.3) Baso # (Auto) 0.0 K/mm3 (0.0-0.1) Abs Immat Gran (auto) 0.02 K/mm3 (0.00-0.031) Absolute Neuts (auto) 3.0 K/mm3 (1.3-6.7) Absolute Nucleated RBC 0.000 K/mm3 (0.0-0.012) Nucleated RBC % 0.0 % (0.0-0.2) Sodium 137 mmol/L (137-145) Potassium 3.5 mmol/L (3.4-5.0) Chloride 107 mmol/L (98-107) Carbon Dioxide 26 mmol/L (22-30) Anion Gap 4 mmol/L (4-12) BUN 10 mg/dL (7-17) Creatinine 0.62 L mg/dL (0.7-1.0) Estim Creat Clear Calc 50 ml/min Estimated GFR > 60 (59 - ) Glucose 99 mg/dL (65-110) Calcium 8.8 mg/dL (8.4-10.2) Blood Type A Positive Antibody Screen Negative Patient hx anesthesia problems: none Family hx anesthesia problems: none Results Review: All pre-operative results and documents have been reviewed as part of the pre- operative evaluation. [facility] Past Medical History Medical History (Updated 10/29/24 @ 19:46 by Juan Antonio Gould DO) TIA (transient ischemic attack) Hyperlipidemia Social History Social History (Updated 10/29/24 @ 19:47 by Juan Antonio Gould DO) Smoking status: Never smoker Alcohol intake: current Drinks per week: 3 Substance use: current Substance use type: does not use Other substance usage details: THC gummies occ for sleep Lack of Transportation: No Lack of Food: Never True Current Housing: I Have Housing Concerned About Future Housing: No Difficulty Paying Gas/Electric Bills: No Difficulty Paying for Meds: No Currently Unemployed: No Education: High School Diploma/GED Difficulty w/ Childcare or Family Care: No Spiritual care concerns: No Anes - Eval Final PreProcedure Day of Procedure 10/29/24 19:41 Patient weight: normal Heart: regular rate and rhythm Lungs: clear to auscultation Airway: Mallampati scale class II Neurological: alert and oriented Last oral intake: >/= 8 hours ASA classification: III Emergent: no Anesthetic plan: proceed Anesthesia type and monitoring: general LMA and standard monitoring Results Review: All pre-operative results and documents have been reviewed as part of the pre- operative evaluation. Informed Consent: The patient's anesthetic plan and its attendant risks and benefits were discussed with the patient/family/POA. Questions were solicited and answers provided to the satisfaction of the patient/family/POA.
--- NOTE | 2024-10-29 20:05 | WPDHPUPDATE1 ---
History and Physical Update Update Date/Time: 10/29/24 20:05 History and Physical has been reviewed, including an updated exam of the patient. There are NO changes in the patient's condition. Risks, benefits, and alternatives have been discussed and questions answered. Patient agrees to proceed with procedure.
[2024-10-29] MEDS: ceFAZolin 2 GM in SODIUM CHLORIDE 0.9% IV 50 ML 100 ML IVPB (20:08)
--- NOTE | 2024-10-29 21:04 | W.PM.PROC2 ---
Procedure Note - Detailed Date of Procedure 10/29/24 Pre-op Diagnosis RIGHT Intertrochanteric Hip Fracture Post-op Diagnosis Same Procedure Performed Open reduction internal fixation with an intertrochanteric nail Surgeon Simón Hameed MD Anesthesia General Indications Fractured hip Description of Procedure Patient brought to operating room #7. A general anesthetic was administered. She was sterilely prepped and draped after the fracture was aligned on the fracture table. Longitudinal incision made over the tip of the trochanter. The tip was broach with an awl and one-step Reamer used. I tried to put a 9 x 125 nail down, but I had to sequentially ream to 11. I then passed the nail. An 85 millimeter screw was placed in the center of the head. X-rays in the AP and lateral plane demonstrate anatomic alignment of the hip. Wounds irrigated hemostasis obtained closed 2. Vicryl 2-0 Vicryl and jose guadalupe. Sterile dressing applied. Patient left the operative satisfactory condition. Implants [employer] trochanteric nail Estimated Blood Loss 100 Urine Output 800 Drains No Packing No Pathology None sent Complications No immediate complications Condition Stable Disposition PACU [facility] Billing Surgery - Charge Forward: Surgery Billing ([id number] Troch Nail)
[2024-10-29] MEDS: fentaNYL CITRATE INJ (*CRX) 100 MCG/2 ML VIAL 25 MCG IV PUSH ×4 (21:42→21:53)
[2024-10-29] MEDS: HYDROcodone/acetaminophen (*CRX) 7.5-325 MG TABLET 1 TAB PO (22:43)
[2024-10-30] VITALS (8 sets, daily range): BP systolic 101–143; BP diastolic 46–73; PULSE 64–83; RESP 12–18; TEMP 36.2–36.9; O2SAT 92–99
[2024-10-30] MEDS: ceFAZolin 2 GM in SODIUM CHLORIDE 0.9% IV 50 ML 100 ML IVPB ×3 (03:03→19:45)
[2024-10-30] MEDS: HYDROcodone/acetaminophen (*CRX) 7.5-325 MG TABLET 1 TAB PO ×2 (03:04→23:01)
[2024-10-30] MEDS: ACETAMINOPHEN 325 MG TABLET 650 MG PO ×4 (06:00→23:46)
[2024-10-30 06:15] LABS: Hematocrit 30.8 % (37.0-47.0); Hemoglobin 10.0 g/dL (12.0-15.0); Immature Granulocyte Percent A 0.8 % (0-0.5); Lymphocytes Absolute Auto 1.39 K/mm3 (0.9-3.2); Mean Corpuscular HGB Conc 32.5 g/dl (32-36); Mean Corpuscular Hemoglobin 29.9 pg (26-34); Mean Corpuscular Volume 92.2 fl (80-100); Nucleated Red Blood Cells Absolute Auto 0.000 K/mm3 (0.0-0.012); Nucleated Red Blood Cells Perc 0.0 % (0.0-0.2); Platelet Count Result 169 k/mm3 (150-375); Red Blood Count 3.34 M/mm3 (4.2-5.4); White Blood Count 11.7 K/mm3 (4.5-10.0)
[2024-10-30] MEDS: ONDANSETRON INJ 4 MG/2 ML VIAL IV PUSH (06:19)
[2024-10-30 06:58] LABS: Anion Gap 7 mmol/L (4-12); Blood Urea Nitrogen 13 mg/dL (7-17); Calcium 8.4 mg/dL (8.4-10.2); Carbon Dioxide 21 mmol/L (22-30); Chloride 102 mmol/L (98-107); Estimated CRCL calculation 51 ml/min; Estimated Glomerular Filt Rate > 60; Glucose 89 mg/dL (65-110); Potassium 4.0 mmol/L (3.4-5.0); Sodium 130 mmol/L (137-145)
--- NOTE | 2024-10-30 07:49 | PM.PNORT ---
Progress Note: A&P Assessment and Plan (1) Intertrochanteric fracture of right hip: Code(s): S72.141A - Displaced intertrochanteric fracture of right femur, initial encounter for closed fracture Status: Acute Assessment and Plan: S/P ORIF for RIGHT Intertrochanteric Fracture. Doing well. Mobilize today. May bear meaghan as tolerated. Subjective Subjective Date/Time Seen: 10/30/24 07:49 Principal diagnosis: Right Intertrochanteric Fracture Review of Systems Musculoskeletal: Musculoskeletal: Reports arthralgias, Reports joint swelling and Reports stiffness Neurologic: Reports abnormal gait Exam Narrative: Dressing intact wiggles toes Objective Data Vital Signs Vital Signs: Vital Signs - 24 hr 10/29/24 08:00 10/29/24 10:15 10/29/24 10:30 Temperature 97.9 F 97.8 F Pulse Rate 82 85 Respiratory Rate 18 18 Blood Pressure 138/58 L 155/76 H Pulse Oximetry 98 98 Oxygen Delivery Room Air Oxygen Flow Rate 10/29/24 11:00 10/29/24 12:00 10/29/24 14:00 Temperature 98.0 F 97.5 F L 98.8 F Pulse Rate 79 68 77 Respiratory Rate 18 18 18 Blood Pressure 149/68 H 143/55 H 154/78 H Pulse Oximetry 100 100 97 Oxygen Delivery Oxygen Flow Rate 10/29/24 15:55 10/29/24 21:28 10/29/24 21:40 Temperature 98.9 F 97.7 F Pulse Rate 88 105 H 88 Respiratory Rate 16 24 H 17 Blood Pressure 160/77 H 149/98 H 140/60 Pulse Oximetry 100 99 100 Oxygen Delivery Room Air Simple Face Mask Simple Face Mask Oxygen Flow Rate 8 8 10/29/24 21:45 10/29/24 21:55 10/29/24 22:10 Temperature 97.2 F L 97.7 F Pulse Rate 90 80 Respiratory Rate 16 14 Blood Pressure 152/76 H 139/69 Pulse Oximetry 98 97 Oxygen Delivery Nasal Cannula Nasal Cannula Nasal Cannula Oxygen Flow Rate 2 2 2 10/30/24 03:58 Temperature 98.2 F Pulse Rate 71 Respiratory Rate 18 Blood Pressure 124/49 L Pulse Oximetry 99 Oxygen Delivery Oxygen Flow Rate Intake/Output Intake/Output: Intake & Output 07/30/25 07/31/25 08/01/25 08/02/25 23:59 23:59 23:59 23:59 Intake Total 817 326 0275 Output Total 2400 450 Balance 790 -6650 2850 Meds/Results Medications: Active Medications Generic Name Dose Route Start Last Admin Trade Name Freq PRN Reason Stop Dose Admin Acetaminophen 650 mg 10/28/24 16:50 10/30/24 06:00 Acetaminophen 325 Mg Tablet PO 650 mg Q6HR EDWIN Administration Acetaminophen 500 mg 10/29/24 22:13 Acetaminophen 500 Mg Tablet PO Q6H PRN Pain Rated 1-3 Hydrocodone Bitart/Acetaminophen 1 tab 10/29/24 22:13 Hydrocodone/Acetaminophen (*Crx) 5-325 Mg Tablet PO Q4H PRN Pain Rated 4-6 Hydrocodone Bitart/Acetaminophen 1 tab 10/29/24 22:13 10/30/24 03:04 Hydrocodone/Acetaminophen (*Crx) 7.5-325 Mg Tablet PO 1 tab Q4H PRN Administration Pain Rated 7-10 Aspirin 81 mg 10/28/24 18:00 10/29/24 18:08 Aspirin 81 Mg Chewable Tablet PO Not Given QPM EDWIN Atorvastatin Calcium 40 mg 10/28/24 18:00 10/29/24 18:08 Atorvastatin 40 Mg Tablet PO Not Given QPM EDWIN Hydromorphone HCl 1 mg 10/29/24 22:20 Hydromorphone Hcl Inj (*Crx) 2 Mg/Ml Vial IV PUSH Q2H PRN Breakthrough Pain Rated 7-10 or NPO Hydromorphone HCl 0.5 mg 10/29/24 22:20 Hydromorphone Hcl Inj (*Crx) 2 Mg/Ml Vial IV PUSH Q2H PRN Breakthrough Pain Rated 4-6 or NPO Hydroxyzine Pamoate 50 mg 10/29/24 22:13 Hydroxyzine Pamoate 25 Mg Capsule PO Q4H PRN Itching Lactated Ringer's 1,000 mls @ 30 mls/hr 10/29/24 19:50 10/29/24 22:04 Lr - Lactated Ringers Iv IV CONT Infused .Q24H EDWIN Infusion Cefazolin Sodium 2 gm/ Sodium 50 mls @ 100 mls/hr 10/30/24 04:00 10/30/24 03:03 Chloride IVPB 10/30/24 20:29 100 mls/hr Q8H EDWIN Administration Ibuprofen 800 mg in 200 mls @ 400 mls/hr 10/29/24 22:13 Caldolor 800 Mg/200 Ml IVPB Q6H PRN Breakthrough Pain Rated 1-3 or NPO Lidocaine 1 patch 10/28/24 16:50 10/29/24 12:02 Lidocaine 5% Patch TRANSDERM Not Given DAILY EDWIN Methocarbamol 500 mg 10/28/24 21:00 10/29/24 22:43 Methocarbamol 500 Mg Tablet PO 500 mg QID EDWIN Administration Naloxone HCl 0.1 mg 10/29/24 22:13 Naloxone Hcl 0.4 Mg/Ml Vial IV PUSH Q2M PRN Opiate Reversal Ondansetron HCl 4 mg 10/29/24 22:13 10/30/24 06:19 Ondansetron Inj 4 Mg/2 Ml Vial IV PUSH 4 mg Q4H PRN Administration Nausea And Vomiting Polyethylene Glycol 17 gm 10/30/24 09:00 Polyethylene Glycol 3350 17 Gm Powd.Pack PO QAM [facility] Rivaroxaban 10 mg 10/30/24 17:00 Rivaroxaban 10 Mg Tablet PO DAILY@17 [facility] Senna/Docusate Sodium 2 tab 10/30/24 09:00 Senna/Docusate Sodium Tablet PO BID [facility] Tramadol HCl 50 mg 10/29/24 22:13 Tramadol Hcl (*Crx) 50 Mg Tablet PO Q4H PRN Pain Rated 1-3 Radiology Results: ITS Impressions Chest X-Ray 10/28/24 17:49 IMPRESSION: No focal infiltrate or effusion. Labs Labs: Laboratory Results - last 24 hr 10/29/24 10/30/24 13:29 05:40 WBC 11.7 H RBC 3.34 L Hgb 10.0 L Hct 30.8 L MCV 92.2 MCH 29.9 MCHC 32.5 RDW 12.4 Plt Count 169 MPV 9.3 Immature Gran % (Auto) 0.8 H Neut % (Auto) 80.5 H Lymph % (Auto) 11.9 L [place] % (Auto) 6.3 Eos % (Auto) 0.2 Baso % (Auto) 0.3 Lymph # (Auto) 1.39 [place] # (Auto) 0.7 H Eos # (Auto) 0.0 Baso # (Auto) 0.0 Abs Immat Gran (auto) 0.09 H Absolute Neuts (auto) 9.4 H Absolute Nucleated RBC 0.000 Nucleated RBC % 0.0 Sodium 130 L Potassium 4.0 Chloride 102 Carbon Dioxide 21 L Anion Gap 7 BUN 13 Creatinine 0.61 L Estim Creat Clear Calc 51 Estimated GFR > 60 Glucose 89 Calcium 8.4 Blood Type A Positive Antibody Screen Negative
[2024-10-30] MEDS: SENNA/DOCUSATE SODIUM TABLET 2 TAB PO ×2 (08:40→17:16)
--- NOTE | 2024-10-30 13:14 | P.PNAN_ITS ---
Anes - Prog Note Post-Op Date/Time: 10/30/24 13:14 Cardiovascular status: normal Respiratory status: normal Airway patency: baseline Mental status: baseline Post-Op hydration status: normal Vital Signs: Last Vital Signs Temp 98 F 10/30/24 07:58 Pulse 78 10/30/24 08:38 Resp 16 10/30/24 07:58 BP 108/53 L 10/30/24 08:38 Pulse Ox 97 10/30/24 07:58 O2 Del Method Room Air 10/30/24 08:25 O2 Flow Rate 2 10/29/24 22:10 Pain Score (VAS): 7 I/O: Intake & Output 10/29/24 10/30/24 10/30/24 23:59 07:59 15:59 Intake Total 200 3350 410 Output Total 1600 450 Balance -1400 2900 410 Laboratory Tests 10/30/24 05:40 10/30/24 05:40 10/29/24 10/30/24 13:29 05:40 WBC 11.7 H RBC 3.34 L Hgb 10.0 L Hct 30.8 L MCV 92.2 MCH 29.9 MCHC 32.5 RDW 12.4 Plt Count 169 MPV 9.3 Immature Gran % (Auto) 0.8 H Neut % (Auto) 80.5 H Lymph % (Auto) 11.9 L [place] % (Auto) 6.3 Eos % (Auto) 0.2 Baso % (Auto) 0.3 Lymph # (Auto) 1.39 [place] # (Auto) 0.7 H Eos # (Auto) 0.0 Baso # (Auto) 0.0 Abs Immat Gran (auto) 0.09 H Absolute Neuts (auto) 9.4 H Absolute Nucleated RBC 0.000 Nucleated RBC % 0.0 Sodium 130 L Potassium 4.0 Chloride 102 Carbon Dioxide 21 L Anion Gap 7 BUN 13 Creatinine 0.61 L Estim Creat Clear Calc 51 Estimated GFR > 60 Glucose 89 Calcium 8.4 Blood Type A Positive Antibody Screen Negative Post-procedural complaints: nausea Patient Feedback: Patient satisfied with anesthetic care.
--- NOTE | 2024-10-30 14:34 | PM.IMPN ---
Progress Note: A&P Assessment and Plan (1) Nondisplaced fracture of neck of right femur: Code(s): S72.001A - Fracture of unspecified part of neck of right femur, initial encounter for closed fracture Status: Acute (2) Intertrochanteric fracture of right hip: Code(s): S72.141A - Displaced intertrochanteric fracture of right femur, initial encounter for closed fracture Status: Acute Plan fall Nondisplaced fracture of neck of right femur: Code(s): S72.001A - Fracture of unspecified part of neck of right femur, initial encounter for closed fracture Status: Acute Assessment and Plan: Orthopedics consulted Pain management Open Reduction, Internal Fixation D1 No complication Continue PT OT Optimize pain management No focal deficit Hyperlipidemia: Qualifiers: Hyperlipidemia type: unspecified Qualified Code(s): E78.5 - Hyperlipidemia, unspecified Code(s): E78.5 - Hyperlipidemia, unspecified Status: Acute Assessment and Plan: Restart home statin Anemia Postop anemia No need transfusion Follow-up CBC mild hyponatremia Sodium 130 Start sodium chloride 1 g b.i.d. p.o. Subjective Date/time seen: 10/30/24 14:34 Interval history: Postop day 1, and patient has no headache, vision changes, chest pain, shortness breast, abdomen pain, nausea vomiting diarrhea. Right hip pain is still moderate to severe with movement Patient is afebrile, blood pressure stable on the lower side Labs reviewed, leukocytosis 11,700 hemoglobin 10.0 Sodium 130 Exam Narrative: GENERAL: Pleasant, in no acute distress. Well-nourished. - EYES: EOMI. Anicteric. - HENT: Moist mucous membranes. - LUNGS: Clear to auscultation bilaterally, no wheezing, rhonchi, or rales. - CARDIOVASCULAR: Regular rate and rhythm. No murmur. No JVD. - ABDOMEN: Soft, non-tender and non-distended. No palpable masses. - EXTREMITIES: No edema. Peripheral pulses 2+. Non-tender. Right hip tenderness to palpation, surgical wound dry and clean - NEUROLOGIC: No focal neurological deficits. CN II-XII grossly intact. - PSYCHIATRIC: Awake, Alert and oriented x 3. Appropriate mood and affect. - SKIN: No rashes or lesions. Warm. - LYMPH: No cervical lymphadenopathy. Objective Data Vital Signs Vital Signs: Vital Signs - 24 hr 08/01/25 15:55 10/29/24 21:28 10/29/24 21:40 Temperature 98.9 F 97.7 F Pulse Rate 88 105 H 88 Respiratory Rate 16 24 H 17 Blood Pressure 160/77 H 149/98 H 140/60 Pulse Oximetry 100 99 100 Oxygen Delivery Room Air Simple Face Mask Simple Face Mask Oxygen Flow Rate 8 8 10/29/24 21:45 10/29/24 21:55 10/29/24 22:10 Temperature 97.2 F L 97.7 F Pulse Rate 90 80 Respiratory Rate 16 14 Blood Pressure 152/76 H 139/69 Pulse Oximetry 98 97 Oxygen Delivery Nasal Cannula Nasal Cannula Nasal Cannula Oxygen Flow Rate 2 2 2 10/30/24 03:58 10/30/24 07:51 10/30/24 07:58 Temperature 98.2 F 98 F Pulse Rate 71 64 Respiratory Rate 18 16 Blood Pressure 124/49 L 116/60 Pulse Oximetry 99 95 97 Oxygen Delivery Room Air Oxygen Flow Rate 10/30/24 08:00 10/30/24 08:13 10/30/24 08:25 Temperature Pulse Rate Respiratory Rate Blood Pressure Pulse Oximetry Oxygen Delivery Room Air Room Air Room Air Oxygen Flow Rate 10/30/24 08:38 10/30/24 11:58 Temperature 98.3 F Pulse Rate 78 67 Respiratory Rate 18 Blood Pressure 108/53 L 101/46 L Pulse Oximetry 98 Oxygen Delivery Oxygen Flow Rate Intake/Output Intake/Output: Intake & Output 10/27/24 10/28/24 10/29/24 10/30/24 23:59 23:59 23:59 23:59 Intake Total 878 906 0112 Output Total 2400 450 Balance 790 -1610 3430 Meds/Results Medications: Active Medications Generic Name Dose Route Start Last Admin Trade Name Freq PRN Reason Stop Dose Admin Acetaminophen 650 mg 10/28/24 16:50 10/30/24 11:59 Acetaminophen 325 Mg Tablet PO 650 mg Q6HR EDWIN Administration Acetaminophen 500 mg 10/29/24 22:13 Acetaminophen 500 Mg Tablet PO Q6H PRN Pain Rated 1-3 Hydrocodone Bitart/Acetaminophen 1 tab 10/29/24 22:13 Hydrocodone/Acetaminophen (*Crx) 5-325 Mg Tablet PO Q4H PRN Pain Rated 4-6 Hydrocodone Bitart/Acetaminophen 1 tab 10/29/24 22:13 10/30/24 03:04 Hydrocodone/Acetaminophen (*Crx) 7.5-325 Mg Tablet PO 1 tab Q4H PRN Administration Pain Rated 7-10 Aspirin 81 mg 10/28/24 18:00 10/29/24 18:08 Aspirin 81 Mg Chewable Tablet PO Not Given QPM EDWIN Atorvastatin Calcium 40 mg 10/28/24 18:00 10/29/24 18:08 Atorvastatin 40 Mg Tablet PO Not Given QPM EDWIN Hydromorphone HCl 1 mg 10/29/24 22:20 Hydromorphone Hcl Inj (*Crx) 2 Mg/Ml Vial IV PUSH Q2H PRN Breakthrough Pain Rated 7-10 or NPO Hydromorphone HCl 0.5 mg 10/29/24 22:20 Hydromorphone Hcl Inj (*Crx) 2 Mg/Ml Vial IV PUSH Q2H PRN Breakthrough Pain Rated 4-6 or NPO Hydroxyzine Pamoate 50 mg 10/29/24 22:13 Hydroxyzine Pamoate 25 Mg Capsule PO Q4H PRN Itching Cefazolin Sodium 2 gm/ Sodium 50 mls @ 100 mls/hr 10/30/24 04:00 10/30/24 12:30 Chloride IVPB 10/30/24 20:29 Infused Q8H [facility] Infusion Ibuprofen 800 mg in 200 mls @ 400 mls/hr 10/29/24 22:13 Caldolor 800 Mg/200 Ml IVPB Q6H PRN Breakthrough Pain Rated 1-3 or NPO Lidocaine 1 patch 10/28/24 16:50 10/30/24 08:40 Lidocaine 5% Patch TRANSDERM Not Given DAILY EDWIN Methocarbamol 500 mg 10/28/24 21:00 10/30/24 12:00 Methocarbamol 500 Mg Tablet PO 500 mg QID EDWIN Administration Naloxone HCl 0.1 mg 10/29/24 22:13 Naloxone Hcl 0.4 Mg/Ml Vial IV PUSH Q2M PRN Opiate Reversal Ondansetron HCl 4 mg 10/29/24 22:13 10/30/24 06:19 Ondansetron Inj 4 Mg/2 Ml Vial IV PUSH 4 mg Q4H PRN Administration Nausea And Vomiting Polyethylene Glycol 17 gm 10/30/24 09:00 10/30/24 08:40 Polyethylene Glycol 3350 17 Gm Powd.Pack PO 17 gm QAM [facility] Administration Rivaroxaban 10 mg 10/30/24 17:00 Rivaroxaban 10 Mg Tablet PO DAILY@17 [facility] Senna/Docusate Sodium 2 tab 10/30/24 09:00 10/30/24 08:40 Senna/Docusate Sodium Tablet PO 2 tab BID [facility] Administration Sodium Chloride 1 gm 10/30/24 17:00 Sodium Chloride 1 Gm Tablet PO BID [facility] Tramadol HCl 50 mg 10/29/24 22:13 Tramadol Hcl (*Crx) 50 Mg Tablet PO Q4H PRN Pain Rated 1-3 Radiology Results: ITS Impressions Chest X-Ray 10/28/24 17:49 IMPRESSION: No focal infiltrate or effusion. Labs Labs: Laboratory Results - last 24 hr 10/29/24 10/30/24 13:29 05:40 WBC 11.7 H RBC 3.34 L Hgb 10.0 L Hct 30.8 L MCV 92.2 MCH 29.9 MCHC 32.5 RDW 12.4 Plt Count 169 MPV 9.3 Immature Gran % (Auto) 0.8 H Neut % (Auto) 80.5 H Lymph % (Auto) 11.9 L [place] % (Auto) 6.3 Eos % (Auto) 0.2 Baso % (Auto) 0.3 Lymph # (Auto) 1.39 [place] # (Auto) 0.7 H Eos # (Auto) 0.0 Baso # (Auto) 0.0 Abs Immat Gran (auto) 0.09 H Absolute Neuts (auto) 9.4 H Absolute Nucleated RBC 0.000 Nucleated RBC % 0.0 Sodium 130 L Potassium 4.0 Chloride 102 Carbon Dioxide 21 L Anion Gap 7 BUN 13 Creatinine 0.61 L Estim Creat Clear Calc 51 Estimated GFR > 60 Glucose 89 Calcium 8.4 Antibody Screen Negative
[2024-10-30] MEDS: SODIUM CHLORIDE 1 GM TABLET PO (17:16)
[2024-10-30] MEDS: RIVAROXABAN 10 MG TABLET PO (17:16)
[2024-10-30] MEDS: ATORVASTATIN 40 MG TABLET PO (17:16)
[2024-10-30] MEDS: ASPIRIN 81 MG CHEWABLE TABLET PO (17:16)
[2024-10-31 04:55] VITALS: BP 167/87; PULSE 94; RESP 18; TEMP 37; O2SAT 95
[2024-10-31] MEDS: ACETAMINOPHEN 325 MG TABLET 650 MG PO ×2 (06:21→12:17)
[2024-10-31] MEDS: HYDROcodone/acetaminophen (*CRX) 7.5-325 MG TABLET 1 TAB PO (09:27)
[2024-10-31] MEDS: LIDOCAINE 5% PATCH 1 PATCH TRANSDERM (09:29)
[2024-10-31] MEDS: SENNA/DOCUSATE SODIUM TABLET 2 TAB PO ×2 (09:29→17:11)
[2024-10-31] MEDS: SODIUM CHLORIDE 1 GM TABLET PO (09:29)
[2024-10-31 11:36] LABS: Hematocrit 30.6 % (37.0-47.0); Hemoglobin 10.0 g/dL (12.0-15.0); Immature Granulocyte Percent A 0.3 % (0-0.5); Lymphocytes Absolute Auto 1.53 K/mm3 (0.9-3.2); Mean Corpuscular HGB Conc 32.7 g/dl (32-36); Mean Corpuscular Hemoglobin 29.7 pg (26-34); Mean Corpuscular Volume 90.8 fl (80-100); Nucleated Red Blood Cells Absolute Auto 0.000 K/mm3 (0.0-0.012); Nucleated Red Blood Cells Perc 0.0 % (0.0-0.2); Platelet Count Result 207 k/mm3 (150-375); Red Blood Count 3.37 M/mm3 (4.2-5.4); White Blood Count 9.3 K/mm3 (4.5-10.0)
[2024-10-31 12:04] LABS: Anion Gap 3 mmol/L (4-12); Blood Urea Nitrogen 9 mg/dL (7-17); Calcium 8.6 mg/dL (8.4-10.2); Carbon Dioxide 27 mmol/L (22-30); Chloride 102 mmol/L (98-107); Estimated CRCL calculation 54 ml/min; Estimated Glomerular Filt Rate > 60; Glucose 111 mg/dL (65-110); Magnesium 2.0 mg/dL (1.6-2.3); Potassium 3.3 mmol/L (3.4-5.0); Sodium 132 mmol/L (137-145)
--- NOTE | 2024-10-31 14:53 | P.PNIM_ITS ---
Progress Note: A&P Assessment and Plan (1) Intertrochanteric fracture of right hip: Code(s): S72.141A - Displaced intertrochanteric fracture of right femur, initial encounter for closed fracture Status: Acute Plan Doing well postop. Continue PT OT and pain management p.r.n.. Discontinue sodium tablets for mild hyponatremia. Continue to trend. Potassium replaced. Patient wishes to be full code. Subjective Date/time seen: 10/31/24 14:53 Interval history: No major acute overnight events. Patient is tearful as she wants to be home, she declines to go to a different nursing facility for rehab. Wants to be with her . Denies pain. Review of Systems Review of Systems: All systems reviewed & are unremarkable except as noted in HPI and below (Subjective) Exam Const: General: comfortable and no acute distress HENMT: Mouth: Yes moist mucous membranes Eyes: Pupils: Equal, round and reactive pupils present Neck: Neck: supple Resp: Effort & Inspection: normal respiratory effort Auscultation: clear to auscultation bilaterally Cardio: Rate: regular rate Rhythm: regular rhythm GI: Inspection: distended GI Palp: Yes Soft to palpation Neuro: Other: Right lower extremity motor strength 4-5 slightly limited by pain. Extrem: General: no edema Objective Data Vital Signs Vital Signs: Vital Signs - 24 hr 10/30/24 15:58 10/30/24 19:58 10/30/24 20:00 Temperature 97.2 F L 98.3 F Pulse Rate 83 77 Respiratory Rate 12 18 Blood Pressure 111/48 L 143/69 H Pulse Oximetry 96 97 Oxygen Delivery Room Air 10/30/24 23:58 10/31/24 04:55 10/31/24 08:00 Temperature 98.4 F 98.6 F Pulse Rate 74 94 Respiratory Rate 18 18 Blood Pressure 134/73 167/87 H Pulse Oximetry 92 95 Oxygen Delivery Room Air Intake/Output Intake/Output: Intake & Output 10/28/24 10/29/24 10/30/24 10/31/24 23:59 23:59 23:59 23:59 Intake Total 444 327 5323 1740 Output Total 2400 450 Balance 790 -1610 3550 1740 Meds/Results Medications: Active Medications Generic Name Dose Route Start Last Admin Trade Name Freq PRN Reason Stop Dose Admin Acetaminophen 650 mg 10/28/24 16:50 10/31/24 12:17 Acetaminophen 325 Mg Tablet PO 650 mg Q6HR EDWIN Administration Acetaminophen 500 mg 10/29/24 22:13 Acetaminophen 500 Mg Tablet PO Q6H PRN Pain Rated 1-3 Hydrocodone Bitart/Acetaminophen 1 tab 10/29/24 22:13 Hydrocodone/Acetaminophen (*Crx) 5-325 Mg Tablet PO Q4H PRN Pain Rated 4-6 Hydrocodone Bitart/Acetaminophen 1 tab 10/29/24 22:13 10/31/24 09:27 Hydrocodone/Acetaminophen (*Crx) 7.5-325 Mg Tablet PO 1 tab Q4H PRN Administration Pain Rated 7-10 Aspirin 81 mg 10/28/24 18:00 10/30/24 17:16 Aspirin 81 Mg Chewable Tablet PO 81 mg QPM EDWIN Administration Atorvastatin Calcium 40 mg 10/28/24 18:00 10/30/24 17:16 Atorvastatin 40 Mg Tablet PO 40 mg QPM EDWIN Administration Hydromorphone HCl 1 mg 10/29/24 22:20 Hydromorphone Hcl Inj (*Crx) 2 Mg/Ml Vial IV PUSH Q2H PRN Breakthrough Pain Rated 7-10 or NPO Hydromorphone HCl 0.5 mg 10/29/24 22:20 Hydromorphone Hcl Inj (*Crx) 2 Mg/Ml Vial IV PUSH Q2H PRN Breakthrough Pain Rated 4-6 or NPO Hydroxyzine Pamoate 50 mg 10/29/24 22:13 Hydroxyzine Pamoate 25 Mg Capsule PO Q4H PRN Itching Ibuprofen 800 mg in 200 mls @ 400 mls/hr 10/29/24 22:13 Caldolor 800 Mg/200 Ml IVPB Q6H PRN Breakthrough Pain Rated 1-3 or NPO Lidocaine 1 patch 10/28/24 16:50 10/31/24 09:29 Lidocaine 5% Patch TRANSDERM 1 patch DAILY EDWIN Administration Methocarbamol 500 mg 10/28/24 21:00 10/31/24 12:17 Methocarbamol 500 Mg Tablet PO 500 mg QID EDWIN Administration Naloxone HCl 0.1 mg 10/29/24 22:13 Naloxone Hcl 0.4 Mg/Ml Vial IV PUSH Q2M PRN Opiate Reversal Ondansetron HCl 4 mg 10/29/24 22:13 10/30/24 06:19 Ondansetron Inj 4 Mg/2 Ml Vial IV PUSH 4 mg Q4H PRN Administration Nausea And Vomiting Polyethylene Glycol 17 gm 10/30/24 09:00 10/31/24 09:29 Polyethylene Glycol 3350 17 Gm Powd.Pack PO 17 gm QAM EDWIN Administration Rivaroxaban 10 mg 10/30/24 17:00 10/30/24 17:16 Rivaroxaban 10 Mg Tablet PO 10 mg DAILY@17 EDWIN Administration Senna/Docusate Sodium 2 tab 10/30/24 09:00 10/31/24 09:29 Senna/Docusate Sodium Tablet PO 2 tab BID EDWIN Administration Tramadol HCl 50 mg 10/29/24 22:13 Tramadol Hcl (*Crx) 50 Mg Tablet PO Q4H PRN Pain Rated 1-3 Radiology Results: ITS Impressions Chest X-Ray 10/28/24 17:49 IMPRESSION: No focal infiltrate or effusion. Labs Labs: Laboratory Results - last 24 hr 10/31/24 11:31 WBC 9.3 RBC 3.37 L Hgb 10.0 L Hct 30.6 L MCV 90.8 MCH 29.7 MCHC 32.7 RDW 12.5 Plt Count 207 MPV 8.9 Immature Gran % (Auto) 0.3 Neut % (Auto) 71.1 Lymph % (Auto) 16.5 L [place] % (Auto) 10.8 H Eos % (Auto) 1.0 Baso % (Auto) 0.3 Lymph # (Auto) 1.53 [place] # (Auto) 1.0 H Eos # (Auto) 0.1 Baso # (Auto) 0.0 Abs Immat Gran (auto) 0.03 Absolute Neuts (auto) 6.6 Absolute Nucleated RBC 0.000 Nucleated RBC % 0.0 Sodium 132 L Potassium 3.3 L Chloride 102 Carbon Dioxide 27 Anion Gap 3 L BUN 9 Creatinine 0.57 L Estim Creat Clear Calc 54 Estimated GFR > 60 Glucose 111 H Calcium 8.6 Magnesium 2.0
[2024-10-31] MEDS: POTASSIUM CHLORIDE 20 MEQ PACKET (FOR LIQUID) PO (15:17)
[2024-10-31] MEDS: HYDROcodone/acetaminophen (*CRX) 5-325 MG TABLET 1 TAB PO (15:25)
[2024-10-31] MEDS: ATORVASTATIN 40 MG TABLET PO (17:11)
[2024-10-31] MEDS: ASPIRIN 81 MG CHEWABLE TABLET PO (17:11)
[2024-10-31] MEDS: RIVAROXABAN 10 MG TABLET PO (17:12)
[2024-10-31] MEDS: ONDANSETRON INJ 4 MG/2 ML VIAL IV PUSH (18:28)
[2024-10-31 21:56] VITALS: BP 123/72; PULSE 95; RESP 18; TEMP 36.9; O2SAT 93
[2024-11-01] MEDS: ACETAMINOPHEN 325 MG TABLET 650 MG PO ×4 (00:38→17:03)
[2024-11-01 06:00] VITALS: BP 130/78; PULSE 82; RESP 18; TEMP 36.8; O2SAT 97
[2024-11-01] MEDS: LIDOCAINE 5% PATCH 1 PATCH TRANSDERM (09:42)
[2024-11-01] MEDS: SENNA/DOCUSATE SODIUM TABLET 2 TAB PO ×2 (09:42→17:03)
[2024-11-01 13:48] VITALS: BP 120/59; PULSE 95; RESP 16; TEMP 36.9; O2SAT 99
--- NOTE | 2024-11-01 15:05 | P.PNIM_ITS ---
Progress Note: A&P Assessment and Plan (1) Intertrochanteric fracture of right hip: Code(s): S72.141A - Displaced intertrochanteric fracture of right femur, initial encounter for closed fracture Status: Acute Plan Doing well postop. Continue PT OT and pain management p.r.n.. Discontinued sodium tablets for mild hyponatremia. Potassium was replaced. Continue to trend. On aspirin and Xarelto. Patient wishes to be full code. Plan is to discharge back to [place] with nursing. Patient declines to be discharged anywhere else. Subjective Date/time seen: 11/01/24 15:05 Interval history: No major acute overnight events. Patient has no complaints. She is constipated, this is her usual and she does not want to take anything. Review of Systems Review of Systems: All systems reviewed & are unremarkable except as noted in HPI and below (Subjective) Exam Const: General: comfortable and no acute distress HENMT: Mouth: Yes moist mucous membranes Eyes: Pupils: Equal, round and reactive pupils present Neck: Neck: supple Resp: Effort & Inspection: normal respiratory effort Auscultation: clear to auscultation bilaterally Cardio: Rate: regular rate Rhythm: regular rhythm GI: Inspection: distended GI Palp: Yes Soft to palpation Neuro: Other: Right lower extremity motor strength 4-5 slightly limited by pain. Extrem: General: no edema Objective Data Vital Signs Vital Signs: Vital Signs - 24 hr 10/31/24 20:00 10/31/24 21:56 11/01/24 06:00 Temperature 98.5 F 98.3 F Pulse Rate 95 82 Respiratory Rate 18 18 Blood Pressure 123/72 130/78 Pulse Oximetry 93 97 Oxygen Delivery Room Air 11/01/24 08:00 11/01/24 13:48 Temperature 98.4 F Pulse Rate 95 Respiratory Rate 16 Blood Pressure 120/59 L Pulse Oximetry 99 Oxygen Delivery Room Air Intake/Output Intake/Output: Intake & Output 10/29/24 10/30/24 10/31/24 11/01/24 23:59 23:59 23:59 23:59 Intake Total 790 4000 3040 790 Output Total 2400 450 1000 1150 Balance -1610 3550 2040 -360 Meds/Results Medications: Active Medications Generic Name Dose Route Start Last Admin Trade Name Freq PRN Reason Stop Dose Admin Acetaminophen 650 mg 10/28/24 16:50 11/01/24 12:05 Acetaminophen 325 Mg Tablet PO 650 mg Q6HR EDWIN Administration Acetaminophen 500 mg 10/29/24 22:13 Acetaminophen 500 Mg Tablet PO Q6H PRN Pain Rated 1-3 Hydrocodone Bitart/Acetaminophen 1 tab 10/29/24 22:13 10/31/24 15:25 Hydrocodone/Acetaminophen (*Crx) 5-325 Mg Tablet PO 1 tab Q4H PRN Administration Pain Rated 4-6 Hydrocodone Bitart/Acetaminophen 1 tab 10/29/24 22:13 10/31/24 09:27 Hydrocodone/Acetaminophen (*Crx) 7.5-325 Mg Tablet PO 1 tab Q4H PRN Administration Pain Rated 7-10 Aspirin 81 mg 10/28/24 18:00 10/31/24 17:11 Aspirin 81 Mg Chewable Tablet PO 81 mg QPM EDWIN Administration Atorvastatin Calcium 40 mg 10/28/24 18:00 10/31/24 17:11 Atorvastatin 40 Mg Tablet PO 40 mg QPM EDWIN Administration Lidocaine 1 patch 10/28/24 16:50 11/01/24 09:42 Lidocaine 5% Patch TRANSDERM 1 patch DAILY EDWIN Administration Methocarbamol 500 mg 10/28/24 21:00 11/01/24 12:05 Methocarbamol 500 Mg Tablet PO 500 mg QID EDWIN Administration Naloxone HCl 0.1 mg 10/29/24 22:13 Naloxone Hcl 0.4 Mg/Ml Vial IV PUSH Q2M PRN Opiate Reversal Ondansetron HCl 4 mg 10/29/24 22:13 10/31/24 18:28 Ondansetron Inj 4 Mg/2 Ml Vial IV PUSH 4 mg Q4H PRN Administration Nausea And Vomiting Polyethylene Glycol 17 gm 10/30/24 09:00 11/01/24 09:43 Polyethylene Glycol 3350 17 Gm Powd.Pack PO 17 gm QAM EDWIN Administration Rivaroxaban 10 mg 10/30/24 17:00 10/31/24 17:12 Rivaroxaban 10 Mg Tablet PO 10 mg DAILY@17 EDWIN Administration Senna/Docusate Sodium 2 tab 10/30/24 09:00 11/01/24 09:42 Senna/Docusate Sodium Tablet PO 2 tab BID EDWIN Administration Tramadol HCl 50 mg 10/29/24 22:13 Tramadol Hcl (*Crx) 50 Mg Tablet PO Q4H PRN Pain Rated 1-3 Radiology Results: ITS Impressions Chest X-Ray 10/28/24 17:49 IMPRESSION: No focal infiltrate or effusion. Labs Labs: Laboratory Results - last 24 hr 10/31/24 11:31 WBC 9.3 RBC 3.37 L Hgb 10.0 L Hct 30.6 L MCV 90.8 MCH 29.7 MCHC 32.7 RDW 12.5 Plt Count 207 MPV 8.9 Immature Gran % (Auto) 0.3 Neut % (Auto) 71.1 Lymph % (Auto) 16.5 L [place] % (Auto) 10.8 H Eos % (Auto) 1.0 Baso % (Auto) 0.3 Lymph # (Auto) 1.53 [place] # (Auto) 1.0 H Eos # (Auto) 0.1 Baso # (Auto) 0.0 Abs Immat Gran (auto) 0.03 Absolute Neuts (auto) 6.6 Absolute Nucleated RBC 0.000 Nucleated RBC % 0.0 Sodium 132 L Potassium 3.3 L Chloride 102 Carbon Dioxide 27 Anion Gap 3 L BUN 9 Creatinine 0.57 L Estim Creat Clear Calc 54 Estimated GFR > 60 Glucose 111 H Calcium 8.6 Magnesium 2.0
[2024-11-01] MEDS: ASPIRIN 81 MG CHEWABLE TABLET PO (17:03)
[2024-11-01] MEDS: RIVAROXABAN 10 MG TABLET PO (17:03)
[2024-11-01] MEDS: ATORVASTATIN 40 MG TABLET PO (17:03)
[2024-11-01 20:33] VITALS: PULSE 84; RESP 20; O2SAT 95
[2024-11-01 20:34] VITALS: PULSE 70; RESP 20; O2SAT 95
[2024-11-01] MEDS: MELATONIN 5 MG TABLET PO (21:42)
[2024-11-01 22:00] VITALS: BP 147/72; PULSE 81; RESP 18; TEMP 36.2; O2SAT 96
[2024-11-02] MEDS: ACETAMINOPHEN 325 MG TABLET 650 MG PO (05:53)
[2024-11-02 06:00] VITALS: BP 144/76; PULSE 72; RESP 18; TEMP 36.1; O2SAT 98
[2024-11-02 06:54] LABS: Anion Gap 7 mmol/L (4-12); Blood Urea Nitrogen 8 mg/dL (7-17); Calcium 8.8 mg/dL (8.4-10.2); Carbon Dioxide 26 mmol/L (22-30); Chloride 103 mmol/L (98-107); Estimated CRCL calculation 51 ml/min; Estimated Glomerular Filt Rate > 60; Glucose 99 mg/dL (65-110); Magnesium 2.0 mg/dL (1.6-2.3); Potassium 3.3 mmol/L (3.4-5.0); Sodium 136 mmol/L (137-145)
[2024-11-02 07:45] VITALS: O2SAT 98
[2024-11-02] MEDS: LIDOCAINE 5% PATCH 1 PATCH TRANSDERM (09:52)
--- NOTE | 2024-11-02 10:09 | PM.DS ---
DS: Admitting Diagnosis Discharge Date 11/02/2024 Admitting Diagnosis Intertrochanteric fracture right hip DS: Discharge Diagnosis Discharge Diagnosis (1) Intertrochanteric fracture of right hip: Code(s): S72.141A - Displaced intertrochanteric fracture of right femur, initial encounter for closed fracture Status: Acute DS: Summary Hospital Course Hospital Course: 79-year-old female with history of TIA, hyperlipidemia directly admitted to [facility] on 10/28/2024 from orthopedic surgeon office as she had a fall on 10/22/2024. At the time of the fall she presented to the emergency room with the x-ray negative for fracture. Subsequently had severe pain and unable to bear weight. Hip CT was subsequently ordered which revealed nondisplaced predominantly trans cervical right femoral neck fracture with lesser trochanter involvement. On 11/02/2024 Dr. Hameed performed an open reduction internal fixation within inter trochanteric nail placement. No intraoperative complications. The patient did well postop. She refused to be discharged to a jail facility she had to go home to take care of her with dementia. She did perform very well with physical therapy, on day of discharge using a walker and was with standby assist. She is discharged in stable condition to home on 11/02/2024 to her usual living assisted living [facility]. She will also receive therapy there. Risks versus benefits of rivaroxaban discussed. She will take Xarelto 10 mg p.o. q.day for another 10 days to complete a 14 day course. She is to follow-up with the orthopedic surgeon as well. Patient was full code during the admission. Time Spent with Patient Time attestation: Total time spent providing and/or coordinating discharge services: Exam Const: General: comfortable and no acute distress HENMT: Mouth: Yes moist mucous membranes Eyes: Pupils: Equal, round and reactive pupils present Neck: Neck: supple Resp: Effort & Inspection: normal respiratory effort Auscultation: clear to auscultation bilaterally Cardio: Rate: regular rate Rhythm: regular rhythm GI: Inspection: non-distended GI Palp: Yes Soft to palpation Neuro: Motor exam (neuro): 5/5 motor strength present throughout Extrem: General: no edema DS: Data Data Completed and Pending Labs on day of discharge: Labs from last 24 hours 11/02/24 05:43 Sodium 136 L Potassium 3.3 L Chloride 103 Carbon Dioxide 26 Anion Gap 7 BUN 8 Creatinine 0.61 L Estim Creat Clear Calc 51 Estimated GFR > 60 Glucose 99 Calcium 8.8 Magnesium 2.0 Discharge Plan Discharge Attending physician on discharge: Yesi Benson Consulting providers: Simón Hameed Discharging Clinician: Yesi Benson Patient Disposition: [facility] Activity: may shower Diet: as tolerated Patient Instructions: Antibiotic Form Patient Language: Vietnamese Stand Alone Forms: General Discharge Information Follow-up/Referrals: Simón Hameed MD [Physician] - Geno Story NP [Primary Care Provider] - Discharge Medications: New sennosides-docusate sodium [Senokot-S] 8.6-50 mg Tablet 2 tablet PO BID PRN (Reason: constipation) Qty: 60 0RF Xarelto 10 mg Tablet 10 mg PO DAILY@17 Qty: 10 0RF Continued atorvastatin [Lipitor] 40 mg tablet 40 mg PO QPM aspirin 81 mg tablet 81 mg PO QPM acetaminophen 500 mg capsule 1,000 mg PO Q6H PRN (Reason: pain) Date of admission: 10/28/24 16:56 Primary Care Provider: Geno Story Admitting Provider: Valeria Pink Attending physician on admission: Valeria Pink Condition: Stable Hospitalist MIPS Heart Failure (Exclusion) Patient has history of Heart Transplant or Left Ventricular Assistive Device?: No IF YES, STOP HERE Heart Failure (Qualifier) Patient has current or prior documentation of LVEF less than or equal to 40%, or mod/servere depressed LVSF?: No IF NO, STOP HERE
--- NOTE | 2024-11-02 12:25 | PC.NURSE ---
On 11/02/24, the CUSTOM HARVESTER, Isela Ordonez, provided care and completed [facility] documentation on this patient. I have reviewed the CUSTOM HARVESTER's documentation and agree with the findings.
== END 2024-11-02 12:25 | disposition home or self-care (01) | DRG 481 ==
PROVIDERS: Nurse Practitioner Gerontology; Admitting Provider Orthopaedic Surgery; PCP Nurse Practitioner; Visit Provider General Practice
PROC: 0QS604Z Reposition Right Upper Femur with Internal Fixation Device, Open Approach (ICD-10-PCS; CPT 27245; principal; 2024-10-29 16:30)
DX: S72.034A Nondisplaced midcervical fracture of right femur, initial encounter for closed fracture (principal); E87.1 Hypo-osmolality and hyponatremia; D64.89 Other specified anemias; E78.5 Hyperlipidemia, unspecified; W19.XXXA Unspecified fall, initial encounter; Z86.73 Personal history of transient ischemic attack (TIA), and cerebral infarction without residual deficits
CPT/HCPCS: 36415; 71045; 80048; 83735; 85025; 86850; 86900; 86901; 93005; 97110; 97116; 97161; 97165; 97530; 97535; 99199; J0690; A9270; C1713; J1885; J2003; J2371; J2405; J2704; J3010; J7120

== ENCOUNTER 2025-01-13 13:04 | Outpatient (CLI) | payer MEDICARE, SELFPAY ==
--- NOTE | ~2025-01-13 | DEXA_ITS ---
Bone Density Report Name: WILFREDO BELLA Age: 79 Sex: Female Ethnicity: White Date of : 1945 Indication: postmenopausal; screening for osteoporosis; height loss; prior fracture; hysterectomy; Referring Provider: Geno Story Study: Bone densitometry was performed. Exam Date: January 13, 2025 Accession number: [id number] Bone Density: Region BMD T-score Z-score Classification AP Spine(L1-L4) 0.781 -2.4 0.2 Osteopenia Femoral Neck (Left) 0.556 -2.6 -0.4 Osteoporosis Total Hip (Left) 0.715 -1.9 0.1 Osteopenia World Health Organization criteria for BMD impression classify patients as: Normal (T-score at or above -1.0), Osteopenia (T-score between -1.0 and -2.5), or Osteoporosis (T-score at or below -2.5). 10-year Fracture Risk: FRAX not reported because: Some T-score for Spine Total or Hip Total or Femoral Neck at or below -2.5 Treated for osteoporosis Clinical Information Provided by Patient: Has had a low trauma fracture Is being treated for osteoporosis Has the following medical conditions: Hysterectomy Patient maximum height was 62.5 Menopause Age: 53 No regular weight bearing exercise Drinks caffeinated beverages Onset of menses at age 14 Number of children 2 Impression: The patient has established osteoporosis, based on the Left Femoral Neck T-score and the existence of a prior fracture. The patient has risk factors, including: previous fracture. Discussion: It is important to ask patients whether they are taking their medications and to encourage continued and appropriate compliance with their osteoporosis therapies to reduce fracture risk. It is also important to review their risk factors and encourage appropriate calcium and vitamin D intakes, exercise, fall prevention and other lifestyle measures. Follow-Up: Consider a repeat BMD and Vertebral Fracture Assessment (VFA) exam in 2 years or sooner if medically necessary, to reassess this patient's status. Reported by: DAYO on 01/13/2025 2:14:00 PM. Reviewed, dictated and finalized at location A.
== END 2025-01-13 13:05 | disposition home or self-care (01) ==
LOC: MICIMG 13:05
PROVIDERS: PCP Internal Medicine; Visit Provider Nurse Practitioner
DX: Z78.0 Asymptomatic menopausal state (principal); M85.88 Other specified disorders of bone density and structure, other site; M81.0 Age-related osteoporosis without current pathological fracture; M85.852 Other specified disorders of bone density and structure, left thigh
CPT/HCPCS: 77080

== ENCOUNTER 2025-01-26 09:51 | Outpatient (CLI) | payer MEDICARE, SELFPAY ==
--- OUTSIDE RECORDS SUMMARY | 2025-01-26 10:59 | XMS_ITS | Encounter Summary ---
[facility] Address 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 Yes 06/20/2020 Within the last year, have y ou been humiliated or emotionally abused in other ways by your partner or ex-partner? No Within the last year, have y ou been kicked, hit, slapped, or otherwise physically hurt by your partner or ex-partner? No 06/20/2020 Within the last year, have y ou been raped or forced to have any kind of sexual activity by your partner or ex-partner? No 06/20/2020 Social Connections Answer Date Recorded In a typical week, how many times do you talk on the telephone with family, friends, or neighbors? More than three times a week 06/20/2020 How often do you get togethe r with friends or relatives? Twice a week 06/20/2020 How often do you attend [facility] or [facility] services? Never 06/20/2020 Do you belong to any clubs o r organizations such as mu-ism groups, unions, fraternal or athletic groups, or school groups? Yes 06/20/2020 How often do you attend meet ings of the clubs or organizations you belong to? More than 4 times per year 06/20/2020 Are you , , di vorced, , never , or living with a partner? 06/20/2020 Financial Resource Strain Answer Date R ecorded How hard is it for you to pa y for the very basics like food, housing, medical care, and heating? Not hard at all 01/28/2022 Food Insecurity Answer Date Recorded In the past 12 months, have you worried that your food would run out before you had money to buy more? Never true 01/28/2022 In the past 12 months, did y ou run out of food and didn't have money to buy more? Never true 01/28/2022 Transportation Needs Answer Date Record ed In the past 12 months, has l ack of transportation kept you from medical appointments or from getting medications? No 01/28/2022 Lack of Transportation (Non-Medical) Not on file 01/28/2022 Housing Stability Answer Date Recorded In the last 12 months, was t here a time when you were not able to pay the mortgage or rent on time? No 06/20/2020 Number of Times Moved in the Last Year Not on fi le 06/20/2020 At any time in the past 12 m [facility], were you homeless or living in a [facility] (including now)? 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
--- OUTSIDE RECORDS SUMMARY | 2025-01-26 10:59 | XMS_ITS | Clinical Summary ---
Author Organization [facility] Address [address] [place] [address] Care Team Providers Care Product Management Manager Name Role Phone Unavailable Primary Care Provider [...] Encounters Date Type Department Care Team Description 01/25/2025 External Device Data [facility] ABSTRACTION Provider, Abstract 01/18/2025 External Device Data [facility] ABSTRACTION Provider, Abstract 11/30/2024 External Device Data [facility] ABSTRACTION Provider, Abstract 11/24/2024 [facility] [id number] [facility] [address] [place] [address] Cisco Nichole MD Provider Call 11/16/2024 External Device Data STL ABSTRACTION Provider, Abstract 11/03/2024 External Device Data ST[facility] ABSTRACTION Provider, Abstract [...] week 06/20/2020 How often do you attend chur ch or orthodox services? Never 06/20/2020 Do you belong to any clubs o r organizations such as zoroastrian groups, unions, fraternal or athletic groups, or [...] any time in the past 12 m [facility], were you homeless or living in a snf (including now)? 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 Gender Identity Not on file Sexual Orientation Not on file Last Filed Vital Signs Vital Sign Reading Time Taken Comments Blood Pressure 122/80 02/03/2024 2:05 PM DIRECTOR OF EMAIL MARKETING Pulse 94 02/03/2024 2:05 PM DIRECTOR OF EMAIL MARKETING Temperature 36.7 C (98 F) 04/09/2023 2:00 PM DIRECTOR OF EMAIL MARKETING Respiratory Rate 18 04/09/2023 2:00 PM DIRECTOR OF EMAIL MARKETING Oxygen Saturation 97% 02/03/2024 2:05 PM DIRECTOR OF EMAIL MARKETING Inhaled Oxygen Concentration - - Weight 59 kg (130 lb) 02/03/2024 2:05 PM DIRECTOR OF EMAIL MARKETING Height 158.8 cm (5' 2.5) 02/03/2024 2:05 PM DIRECTOR OF EMAIL MARKETING Body Mass Index 23.4 02/03/2024 2:05 PM DIRECTOR OF EMAIL MARKETING Plan of Treatment Health Maintenance Due Date Last Done Comments DTAP/TDAP/TD VACCINES (1 - Tdap) 1965 COLORECTAL SCREENING 08/27/2018 08/27/2013, 08/27/2013, 12/27/2002 RSV VACCINE (60+ or ) (1 - 1-dose 75+ series) 2021 OSTEOPOROSIS SCREENING 12/22/2022 8, 12/22/2017, 05/05/2014, Additional history exists ZOSTER VACCINE (2 of 2) 06/25/2024 04/30/2024 INFLUENZA VACCINE (#1) 2024 3, 12/23/2022, 02/11/2022, Additional history exists COVID-19 Vaccine (2024-2 6 season) 2024 12/23/2022, 01/26/2021, 05/26/2020, Additional history exists PNEUMOCOCCAL VACCINE 50+ YEARS Completed 0 04/30/2024, 07/17/2015, 03/31/2011 Medical Devices Implanted Type Area Mechanical Maintenance Device Identifier Shelf Expiration Date Model / Serial / Lot Lens Io Tecnis 1pc 17.0 [id number] - [id number] Implanted:Qty: 1 on 07/06/2015 by Beau Morin MD Eye Right: Eye [employer] 01/29/2019 [id number] / [id number] / Lens Io Tecnis 1pc 16.0 [id number] - [id number] Implanted:Qty: 1 on 08/03/2015 by Beau Morin MD Eye Left: Eye [employer] 04/18/2019 [id number] / [id number] / Procedures Procedure Name Priority Date/Time Associated [...] Recently Relevant to Health Maintenance Insurance [employer] 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
[2025-01-26 13:15] LABS: Hematocrit 41.9 % (37.0-47.0); Hemoglobin 13.5 g/dL (12.0-15.0); Immature Granulocyte Percent A 0.3 % (0-0.5); Lymphocytes Absolute Auto 1.57 K/mm3 (0.9-3.2); Mean Corpuscular HGB Conc 32.2 g/dl (32-36); Mean Corpuscular Hemoglobin 29.2 pg (26-34); Mean Corpuscular Volume 90.5 fl (80-100); Nucleated Red Blood Cells Absolute Auto 0.000 K/mm3 (0.0-0.012); Nucleated Red Blood Cells Perc 0.0 % (0.0-0.2); Platelet Count Result 248 k/mm3 (150-375); Red Blood Count 4.63 M/mm3 (4.2-5.4); White Blood Count 6.4 K/mm3 (4.5-10.0)
[2025-01-26 13:18] LABS: Alanine Aminotransferase 10 U/L (6-35); Albumin Level 4.1 g/dL (3.5-5.1); Alkaline Phosphatase 83 U/L (38-126); Anion Gap 6 mmol/L (4-12); Aspartate Amino Transferase 37 U/L (14-36); Bilirubin,Total 0.6 mg/dL (0.2-1.3); Blood Urea Nitrogen 10 mg/dL (7-17); Calcium 9.2 mg/dL (8.4-10.2); Carbon Dioxide 26 mmol/L (22-30); Chloride 104 mmol/L (98-107); Cholesterol 161 mg/dL (0-200); Estimated Glomerular Filt Rate > 60; Glucose 80 mg/dL (65-110); HDL Direct 56 mg/dL; Potassium 3.9 mmol/L (3.4-5.0); Sodium 136 mmol/L (137-145); Total Protein 6.9 g/dL (6.3-8.2); Triglycerides 91 mg/dL (<150)
== END 2025-01-26 09:52 | disposition home or self-care (01) ==
LOC: ANHGOSHLAB 09:52
PROVIDERS: PCP Internal Medicine; Visit Provider Nurse Practitioner
DX: E78.5 Hyperlipidemia, unspecified (principal); D64.9 Anemia, unspecified
CPT/HCPCS: 36415; 80053; 80061; 85025